=== PATIENT | male | born 1960 | race African-American/Black ===

== ENCOUNTER 2025-01-08 19:46 | Emergency (ER) | payer OTHER ==
--- OUTSIDE RECORDS SUMMARY | 2025-01-08 19:54 | XMS REPORT | Continuity of Care Document ---
Author Name Unknown Address [address] [facility] [address] [place] [address] [facility] [place] Address [address] [facility] [address] [place] [address] Care Team Providers Care Rosin Barrel Filler Name Role Phone Jorge Alberto Beltran MD Primary Care Physician Jorge Alberto Beltran MD Attending Clinician [phone] Radiology Attending Clinician Unavailable RADIOLOGY Attending Clinician Unavailable Elias Han Attending Clinician Charmaine Dunn Attending Clinician [phone] Rita Glasgow Attending Clinician EKTA Attending Clinician Unavailable Kelly Quijano Attending Clinician Justyna Bowman Attending Clinician ARLIN Attending Clinician Unavailable Portillo Mensah Attending Clinician UnavailJorge Alberto Huerta MD Attending Clinician [phone] JORGE ALBERTO BELTRAN Attending Clinician Lyssa Lomax RN, Marcela Attending Clinician [phone] [facility] ANNE MARIE ARSHAD Attending Clinician Unavailable Singer VACA Jose Enrique Attending Clinician [phone] Anne Marie Arshad MD Attending Clinician [phone] Ellen Brito Attending Clinician [phone] ELLEN RASMUSSEN Attending Clinician Unavailable WINSTON FLETCHER Attending Clinician Unavailable Winston Fletcher MD Attending Clinician [phone] Pcp-Lab Attending Clinician Unavailable Susie Seals MD Attending Clinician + [phone] Minda Arthur MD Attending Clinician [phone] Eric Steward MD Attending Clinician [phone] SUSIE SEALS Attending Clinician Unavaila SUSIE Bryant Attending Clinician Unavaila amadou Doctor Unassigned, [place] Attending Clinician U navailable Ju Wagoner MA Attending Clinician Unavail able Sean Polk MD Attending Clinician [phone] ERIC STEWARD Attending Clinician Unavailab le 1, [facility] Attending Clinician Unavailable Mee Buchanan MD Attending Clinician [phone] OWENS_T Admitting Clinician Unavailable FRANCISCO_BRENDA Admitting Clinician Unavailable Awais Mckeon Admitting Clinician Unavailable ANNE MARIE ARSHAD Admitting Clinician Unavailable Anne Marie Arshad MD Admitting Clinician [phone] Payers Payer Name Policy Type Policy Number Effective Date Expirati on Date Source [facility] (MEDICARE REPLACEMENT HMO) [id number] 2021 00:00:00 [employer] - MEDICARE COMPLETE (MEDICARE REPLACEMENT HMO) [id number] Problems Condition Name Condition Details Condition Category Status Onset Date Resolution Date Last Treatment Date Treating Clinician Comments Source Pulmonary hypertensi on Pulmonary hypertensi on Disease Active 11-19 00:00: 00 [facility] 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 Disease Active 11-19 00:00: 00 [facility] Frequent PVCs Frequent PVCs Disease Active 11-17 00:00: 00 [facility] Acute on chronic diastolic CHF (congestiv e heart failure), NYHA class 3 Acute on chronic diastolic CHF (congestiv e heart failure), NYHA class 3 Disease Active 11-17 00:00: 00 [facility] Frequent PVCs Frequent PVCs Disease Active 11-17 00:00: 00 [facility] Nonsustain ed ventricula r tachycardi a Nonsustain ed ventricula r tachycardi a Disease Active 11-17 00:00: 00 [facility] Elevated troponin I level Elevated troponin I level Disease Active 11-17 00:00: 00 [facility] Acute right-side d CHF (congestiv e heart failure) Acute right-side d CHF (congestiv e heart failure) Disease Active 11-15 00:00: 00 [facility] Chronic gout of multiple sites, unspecifie d cause Chronic gout of multiple sites, unspecifie d cause Disease Active 09-15 00:00: 00 [facility] Chronic gout of multiple sites, unspecifie d cause Chronic gout of multiple sites, unspecifie d cause Disease Active 09-15 00:00: 00 [facility] Polyarthra lgia Polyarthra lgia Disease Active 09-15 00:00: 00 [facility] Hyperurice shira Hyperurice shira Disease Active 09-15 00:00: 00 [facility] Elevated serum creatinine Elevated serum creatinine Disease Active 09-15 00:00: 00 [facility] Generalize d osteoarthr itis Generalize d osteoarthr itis Disease Active 09-15 00:00: 00 [facility] History of CHF (congestiv e heart failure) History of CHF (congestiv e heart failure) Disease Active 09-15 00:00: 00 [facility] Personal history of gout Personal history of gout Disease Active 09-15 00:00: 00 [facility] ELISEO (acute kidney injury) ELISEO (acute kidney injury) Disease Active 2018-08 00:00: 00 [facility] Fluid overload Fluid overload Disease Active 2018-08 00:00: 00 [facility] CHF exacerbati on CHF exacerbati on Disease Active 2018-08 00:00: 00 [facility] Essential hypertensi on Essential hypertensi on Disease Active 2018-08 00:00: 00 [facility] Other hyperlipid emia Other hyperlipid emia Disease Active 2018-08 00:00: 00 [facility] ICD (implantab le cardiovert er-defibri llator) in place ICD (implantab le cardiovert er-defibri llator) in place Disease Active 2018-08 00:00: 00 [facility] ELISEO (acute kidney injury) ELISEO (acute kidney injury) Disease Active 2018-08 00:00: 00 [facility] Coagulase- negative staphyloco ccal infection Coagulase- negative staphyloco ccal infection Disease Active 01-12 00:00: 00 [facility] Fungal infection Fungal infection Disease Active 01-12 00:00: 00 [facility] MRSA infection MRSA infection Disease Active 01-12 00:00: 00 [facility] Coagulase- negative staphyloco ccal infection Coagulase- negative staphyloco ccal infection Disease Active 01-12 00:00: 00 [facility] Acanthosis nigricans Acanthosis nigricans Disease Active 01-12 00:00: 00 [facility] Tobacco use disorder Tobacco use disorder Disease Active 01-12 00:00: 00 [facility] Cellulitis of axilla, right Cellulitis of axilla, right Disease Active 12-08 00:00: 00 [facility] Cellulitis of axilla, right Cellulitis of axilla, right Disease Active 12-08 00:00: 00 [facility] Morbid obesity with body mass index of 40.0-49.9 Morbid obesity with body mass index of 40.0-49.9 Disease Active 12-06 00:00: 00 [facility] Morbid obesity with body mass index of 40.0-49.9 Morbid obesity with body mass index of 40.0-49.9 Disease Active 12-06 00:00: 00 [facility] Postproced ural seroma of skin and subcutaneo us tissue following other procedure Postproced ural seroma of skin and subcutaneo us tissue following other procedure Disease Active 12-05 00:00: 00 Overview: Formattin g of this note might be different from the original. Added automatic ally from request for surgery [id number] [facility] Obesity (BMI 30-39.9) Obesity (BMI 30-39.9) Disease Active 11-11 00:00: 00 [facility] Lymphadeno renate, axillary Lymphadeno renate, axillary Disease Active 11-02 00:00: 00 Overview: Formattin g of this note might be different from the original. Added automatic ally from request for surgery [id number] [facility] Hyperlipid emia Hyperlipid emia Problem Active 09-19 00:00: 00 [facility] Gout Gout Problem Active 09-19 00:00: 00 [facility] Obesity Obesity Problem Active 09-19 00:00: 00 [facility] Hypertensi ve disorder Hypertensi ve Disorder Problem Active 09-19 00:00: 00 [facility] Allergies, Adverse Reactions, Alerts Allergy Name Allergy Type Status Severity Reaction(s) Onset Date Inactive Date Treating Clinician Comments Source Sulfa (Sulfona mide Antibiot ics) Propensi ty to adverse reaction s Active Other - See comments 10-28 00:00: 00 Blisters on body [facility] Sulfa (Sulfona mide Antibiot ics) Propensi ty to adverse reaction s Active Other - See comments 10-28 00:00: 00 Blisters on body [facility] SULFA (SULFONA MIDE ANTIBIOT ICS) Drug Class Active Other-Cmnt 10-28 00:00: 00 [facility] No Known Allergie s DA Active U 2012-08 00:00: 00 [facility] Bactrim Allergy to substanc e Active Rash [facility] Bactrim Drug Allergy Active Moderate [facility] Social History Social Habit Start Date Stop Date Quantity Comments [facility] History of tobacco use Chews Tobacco [facility] Alcohol intake 2020-12-02 00:00:00 2020-12-02 00:00:00 Current non-drinker of alcohol (finding) [facility] History of Social function 2020-12-02 00:00:00 2020-12-02 00:00:00 [facility] Exposure to SARS-CoV-2 (event) 2020-10-16 00:00:00 2020-11-15 18:32:00 Not sure [facility] Alcoholic beverage intake 2019-09-27 00:00:00 2019-09-27 00:00:00 Current non-drinker of alcohol (finding) [facility] Tobacco use and exposure 2019-03-14 00:00:00 2019-03-14 00:00:00 Former smokeless tobacco user [facility] Sex assigned at 1960 00:00:00 1960 00:00:00 [facility] Smoking Status Start Date Stop Date Source Occasional tobacco smoker 2020-11-16 00:00:00 [facility] Ex-smoker 2019-03-14 00:00:00 2019-03-14 00:00:00 [facility] Current every day smoker 2019-02-17 00:00:00 [facility] Medications Ordered Medication Name Filled Medication Name Start Date Stop Date Current Medication? Ordering Clinician Indication Dosage Frequency Signature (SIG) Comments Components Source BUMETANIDE 1 mg tablet 02-25 00:00: 00 Yes [id number] TAKE 2 TABLETS BY MOUTH IN THE MORNING AND IN THE EVENING [facility] BUMETANIDE 1 mg tablet 12-27 00:00: 00 Yes [id number] TAKE 2 TABLETS BY MOUTH IN THE MORNING AND IN THE EVENING [facility] bumetanide 1 mg tablet 08 00:00: 00 Yes [id number] 2mg Take 2 tablets by mouth every morning and evening. [facility] predniSONE 20 mg tablet 11-20 00:00: 00 12-02 00:00 :00 No [id number] 40mg Take 2 tablets by mouth daily. [facility] lovastatin 20 mg tablet 11-19 18:03: 47 11-19 00:00 :00 No Take by mouth at bedtime. [facility] albuterol-i pratropium 20-100 mcg/actuati on inhaler 11-19 00:00: 00 Yes [id number] 1{puff} Inhale 1 Puff 4 (four) times daily. [facility] nitroglycer in 0.4 mg sublingual tablet 11-19 00:00: [id number] 1 tablet under the tongue every 5 (five) minutes as needed for Chest pain. [facility] bumetanide 1 mg tablet 11-19 00:00: 00 12-05 00:00 :00 No [id number] 2mg Take 2 tablets by mouth every morning and evening. [facility] sulfur hexafluorid e microsphr (LUMASON) injection 5 mL 11-18 15:00: 00 11-18 15:52 :00 No [id number] 5mL 5 mL, Intravenou s, ONCE, 1 dose, Wed11/18/20 at 1000, Routine
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 crewmember approving Restricted medication : JEZ NEGRETE [facility] predniSONE (DELTASONE) tablet 40 mg 11-18 14:00: 00 11-21 13:59 :00 No 40mg 40 mg, Oral, DAILY, 3 doses, First dose on Wed11/18/20 at 0900, Last dose on Wed11/20/20 at 0900, Routine [facility] methylpredn isolone sod succ (SOLU-MEDRO L) injection 40 mg 11-18 01:00: 00 11-18 13:22 :20 No 40mg 40 mg, Intravenou s, Q12H, First dose (after last modificati on) on 11/17/20 at 2000, Until Discontinu ed, Routine [facility] allopurinoL (ZYLOPRIM) tablet 300 mg 11-17 18:30: 00 Yes 300mg 300 mg, Oral, DAILY, First dose on 11/17/20 at 1330, Until Discontinu ed, Routine [facility] docusate (COLACE) capsule 100 mg 11-17 14:00: 00 Yes 100mg 100 mg, Oral, DAILY, First dose on 11/17/20 at 0900, Until Discontinu ed, Routine [facility] enoxaparin (LOVENOX) injection 40 mg 11-16 22:00: 00 Yes 40mg 40 mg, Subcutaneo us, DAILY, First dose on 11/16/20 at 1700, Until Discontinu ed, Routine [facility] methylpredn isolone sod succ (SOLU-MEDRO L) injection 40 mg 11-16 17:00: 00 11-17 13:11 :59 No 40mg 40 mg, Intravenou s, Q6H, First dose (after last modificati on) on 11/16/20 at 1200, Until Discontinu ed, Routine [facility] carvediloL (COREG) tablet 12.5 mg 11-16 16:00: 00 11-17 15:17 :01 No 12.5mg 12.5 mg, Oral, BID MEALS, First dose on 11/16/20 at 1100, Until Discontinu ed, Routine [facility] magnesium sulfate in water 2 gram/50 mL (4 %) infusion 2 g 11-16 14:00: 00 11-16 13:10 :00 No 2g 2 g, IV Piggyback, ONCE, 1 dose, 11/16/20 at 0900, Routine [facility] bumetanide (BUMEX) injection 2 mg 11-16 13:00: 00 Yes 2mg 2 mg, Slow IV Push, BID, First dose (after last modificati on) on 11/16/20 at 0800, Until Discontinu ed, Routine
Indicatio n: Decompensa jade heart failure/vo lume overload and not responsive to IV furosemide [facility] albuterol-i pratropium (COMBIVENT RESPIMAT) 20-100 mcg/actuati on inhaler 1 Puff 11-16 13:00: 00 Yes 1{puff} 1 Puff, Inhalation , QID, First dose on 11/16/20 at 0800, Until Discontinu ed, Routine
Is this order for a patient with suspected or confirmed COVID-19 infection? Yes [facility] nicotine (NICODERM) 7 mg/24 hr patch 1 Patch 11-16 10:30: 00 11-17 16:51 :00 No 1{patch } 1 Patch, Topical, Administer over 24 Hours, ONCE, 1 dose, 11/16/20 at 0530, Routine [facility] albuterol-i pratropium (COMBIVENT RESPIMAT) 20-100 mcg/actuati on inhaler 1 Puff 11-16 09:30: 40 11-17 17:38 :20 No 1{puff} 1 Puff, Inhalation , QIDPRN, Starting 11/16/20 at 0430, Until 11/17/20 at 1238, Routine, Wheezing, Shortness of Breath, Bronchospa sm, Chest tightness< br>Is this order for a patient with suspected or confirmed COVID-19 infection? Yes [facility] hydralAZINE (APRESOLINE ) injection 10 mg 11-16 05:21: 53 Yes 10mg 10 mg, Slow IV Push, Q4HPRN, Starting 11/16/20 at 0021, Until Discontinu ed, STAT, DBP=>100; SBP=>160, DBP=>100; SBP=>180<b r>Indicati on: Hypertensi ve Emergency [facility] nitroglycer in (NITROSTAT) sublingual tablet 0.4 mg 11-16 05:14: 35 Yes .4mg 0.4 mg, Sublingual , Q5MIN PRN, Starting 11/16/20 at 0014, Until Discontinu ed, Routine, Chest pain [facility] ondansetron (ZOFRAN (PF)) injection 4 mg 11-16 05:13: 55 Yes 4mg 4 mg, Slow IV Push, Q6HPRN, Starting 11/16/20 at 0013, Until Discontinu ed, Routine, Nausea and Vomiting (N/V) [facility] acetaminoph en (TYLENOL) tablet 650 mg 11-16 05:13: 37 Yes 650mg 650 mg, Oral, Q6HPRN, Starting 11/16/20 at 0013, Until Discontinu ed, Routine, Pain (scale 1-3) [facility] methylpredn isolone sod succ (SOLU-MEDRO L) injection 125 mg 11-16 05:00: 00 11-16 09:30 :03 No 125mg 125 mg, Intravenou s, Q6H, First dose on 11/16/20 at 0000, Until Discontinu ed, Routine [facility] iohexol (OMNIPAQUE 350 BULK-100 mL) injection 100 mL 11-16 02:30: 00 11-16 02:15 :00 No [id number] 100mL 100 mL, Intravenou s, ONCE, 1 dose, Wed11/15/20 at 2130, Routine [facility] bumetanide (BUMEX) injection 1.25 mg 11-16 01:30: 00 11-16 12:51 :31 No 1.25mg 1.25 mg, Slow IV Push, Q24H, First dose on Wed11/15/20 at 2030, Until Discontinu ed, Routine
Indicatio n: Decompensa jade heart failure/vo lume overload and not responsive to IV furosemide [facility] lovastatin 20 mg tablet 2019-08 19:45: 41 Yes Take by mouth at bedtime. [facility] gabapentin 100 mg capsule 2019-08 19:44: 46 07-24 00:00 :00 No 100mg Take 100 mg by mouth daily. [facility] colchicine 0.6 mg tablet 2019-08 00:00: 00 Yes [id number] .6mg Take 1 tablet by mouth daily. Please take 1 tablet three times a week [facility] methylPREDN ISolone 4 mg tablets 2019-08 00:00: 00 11-19 00:00 :00 No [id number] Take by mouth SEE-INSTRU CTIONS. follow package directions [facility] allopurinoL 100 mg tablet 04-11 00:00: 07-24 00:00 :00 No [id number] 100mg Take 1 tablet by mouth daily. [facility] predniSONE 5 mg tablet 04-11 00:00: 00 04-27 04:59 :00 No [id number] Take 6 tablets by mouth daily for 5 days, THEN 4 tablets daily for 5 days, THEN 2 tablets daily for 5 days. [facility] methylPREDN ISolone (MEDROL, JOSEFA,) 4 mg tablets 03-27 00:00: 04-11 00:00 :00 No [id number] Take by mouth SEE-INSTRU CTIONS. follow package directions [facility] colchicine 0.6 mg tablet 03-07 00:00: 00 07-24 00:00 :00 No [id number] Please take 1 tablet three times a week [facility] predniSONE 5 mg tablet 03-07 00:00: 00 03-17 04:59 :00 No [id number] Take 4 tablets by mouth daily for 3 days, THEN 3 tablets daily for 3 days, THEN 2 tablets daily for 3 days. [facility] colchicine 0.6 mg tablet 6-17 00:00: 00 03-07 00:00 :00 No [id number] Please take 1 tablet three times a week [facility] allopurinoL 100 mg tablet 3-26 00:00: 00 04-11 00:00 :00 No [id number] 100mg Take 1 tablet by mouth daily. [facility] colchicine 0.6 mg tablet 11-22 00:00: 02-13 00:00 :00 No [id number] Please take 1 tablet three times a week [facility] colchicine 0.6 mg tablet 09-14 00:00: 11-22 00:00 :00 No [id number] Please take 1 tablet three times a week [facility] allopurinoL 100 mg tablet 09-14 00:00: 11-22 00:00 :00 No [id number] 100mg Take 1 tablet by mouth daily. [facility] lovastatin 20 mg tablet 2018-08 19:46: 57 Yes Take by mouth at bedtime. [facility] gabapentin 100 mg capsule 2018-08 19:46: 57 Yes 100mg Take 100 mg by mouth daily. [facility] spironolact one 25 mg tablet 2018-08 00:00: 07-24 00:00 :00 No [id number] 25mg Take 1 tablet by mouth daily. [facility] benzonatate 200 mg capsule 2018-08 00:00: 01-09 00:00 :00 No [id number] 200mg Take 1 capsule by mouth 3 (three) times daily as needed for Cough. [facility] acetaminoph en-codeine 300-30 mg tablet 2018-08 00:00: 07-24 00:00 :00 No [id number] 1{tbl} Take 1 tablet by mouth every 6 (six) hours as needed (pain unrelieved by Ibuprofen or Aleve). [facility] traMADol (ULTRAM) 50 mg tablet 2018-08 0 00:00: 07-24 00:00 :00 No [id number] 50mg Take 1 tablet by mouth every 6 (six) hours as needed for Pain (scale 7-10). [facility] ondansetron (ZOFRAN) 4 mg tablet 2018-08 0 00:00: 07-24 00:00 :00 No [id number] 4mg Take 1 tablet by mouth every 8 (eight) hours as needed for Nausea and Vomiting (N/V). [facility] lovastatin 20 mg tablet 02-17 18:07: 14 Yes Take by mouth at bedtime. [facility] gabapentin 100 mg capsule 02-17 18:07: 14 Yes 100mg Take 100 mg by mouth daily. [facility] carvedilol 12.5 mg tablet 01-20 00:00: 00 11-19 00:00 :00 No [id number] 12.5mg Take 1 tablet by mouth 2 (two) times daily with meals. [facility] terbinafine HCl 250 mg tablet 01-12 00:00: 00 07-24 00:00 :00 No [id number] 250mg Take 1 tablet by mouth daily. [facility] traMADOL 50 mg tablet 12-10 00:00: 00 Yes [id number] 50mg Take 1 tablet by mouth every 8 (eight) hours as needed for Pain (scale 1-3), Pain (scale 4-6) or Pain (scale 7-10). [facility] indomethaci n 75 mg CR capsule 02-04 00:00: 00 Yes 75mg Take 1 capsule by mouth 2 (two) times daily with meals. [facility] carvedilol 25 mg tablet carvedilol 25 mg tablet Yes [facility] allopurinol 300 mg tablet allopurinol 300 mg tablet Yes [facility] metolazone 5 mg tablet metolazone 5 mg tablet Yes [facility] glipizide 10 mg tablet glipizide 10 mg tablet Yes [facility] CVS PREP 70 % PAD CVS PREP 70 % PAD Yes [facility] metolazone 5 mg tablet metolazone 5 mg tablet Yes [facility] albuterol sulfate hfa 108 (90 base) mcg/act aerosol soln albuterol sulfate hfa 108 (90 base) mcg/act aerosol soln Yes [facility] ipratropium -albuterol 0.5-2.5 (3) mg/3ml solution ipratropium -albuterol 0.5-2.5 (3) mg/3ml solution Yes [facility] furosemide 80 mg tablet furosemide 80 mg tablet Yes [facility] ibuprofen 800 mg tablet ibuprofen 800 mg tablet Yes [facility] ADVAIR DISKUS 250-50 MCG/DOSE AERO POW BR ACT ADVAIR DISKUS 250-50 MCG/DOSE AERO POW BR ACT Yes [facility] gabapentin 300 mg capsule gabapentin 300 mg capsule Yes [facility] pantoprazol e sodium [address] pantoprazol e sodium [address] Yes [facility] atorvastati n calcium 10 mg tablet atorvastati n calcium 10 mg tablet Yes [facility] carvedilol 25 mg tablet carvedilol 25 mg tablet Yes [facility] allopurinol 300 mg tablet allopurinol 300 mg tablet Yes [facility] albuterol sulfate hfa 108 (90 base) mcg/act aerosol soln albuterol sulfate hfa 108 (90 base) mcg/act aerosol soln Yes [facility] ipratropium -albuterol 0.5-2.5 (3) mg/3ml solution ipratropium -albuterol 0.5-2.5 (3) mg/3ml solution Yes [facility] nystatin [id number] unit/ml suspension nystatin [id number] unit/ml suspension Yes [facility] carvedilol 25 mg tablet carvedilol 25 mg tablet No carvedilol 25 mg tablet [facility] clindamycin HCl 300 mg capsule clindamycin HCl 300 mg capsule No clindamyci n HCl 300 mg capsule [facility] furosemide 80 mg tablet furosemide 80 mg tablet No furosemide 80 mg tablet [facility] hydralazine 25 mg tablet hydralazine 25 mg tablet No hydralazin e 25 mg tablet [facility] indomethaci n 50 mg capsule indomethaci n 50 mg capsule No indomethac in 50 mg capsule [facility] lisinopril 20 mg tablet lisinopril 20 mg tablet No lisinopril 20 mg tablet [facility] meloxicam 7.5 mg tablet meloxicam 7.5 mg tablet No meloxicam 7.5 mg tablet [facility] sulfamethox azole 800 mg-trimetho prim 160 mg tablet sulfamethox azole 800 mg-trimetho prim 160 mg tablet No sulfametho xazole 800 mg-trimeth oprim 160 mg tablet [facility] furosemide 80 mg tablet furosemide 80 mg tablet Yes [facility] ADVAIR DISKUS 250-50 MCG/DOSE AERO POW BR ACT ADVAIR DISKUS 250-50 MCG/DOSE AERO POW BR ACT Yes [facility] pantoprazol e sodium [address] pantoprazol e sodium [address] Yes [facility] losartan potassium 50 mg tablet losartan potassium 50 mg tablet Yes [facility] atorvastati n calcium 10 mg tablet atorvastati n calcium 10 mg tablet Yes [facility] carvedilol 25 mg tablet carvedilol 25 mg tablet Yes [facility] allopurinol 300 mg tablet allopurinol 300 mg tablet Yes [facility] glipizide 10 mg tablet glipizide 10 mg tablet Yes [facility] CVS PREP 70 % PAD CVS PREP 70 % PAD Yes [facility] metolazone 5 mg tablet metolazone 5 mg tablet Yes [facility] albuterol sulfate hfa 108 (90 base) mcg/act aerosol soln albuterol sulfate hfa 108 (90 base) mcg/act aerosol soln Yes [facility] ipratropium -albuterol 0.5-2.5 (3) mg/3ml solution ipratropium -albuterol 0.5-2.5 (3) mg/3ml solution Yes [facility] furosemide 80 mg tablet furosemide 80 mg tablet Yes [facility] ibuprofen 800 mg tablet ibuprofen 800 mg tablet Yes [facility] ADVAIR DISKUS 250-50 MCG/DOSE AERO POW BR ACT ADVAIR DISKUS 250-50 MCG/DOSE AERO POW BR ACT Yes [facility] pantoprazol e sodium [address] pantoprazol e sodium [address] Yes [facility] losartan potassium 50 mg tablet losartan potassium 50 mg tablet Yes [facility] atorvastati n calcium 10 mg tablet atorvastati n calcium 10 mg tablet Yes [facility] carvedilol 25 mg tablet carvedilol 25 mg tablet Yes [facility] allopurinol 300 mg tablet allopurinol 300 mg tablet Yes [facility] glipizide 10 mg tablet glipizide 10 mg tablet Yes [facility] CVS PREP 70 % PAD CVS PREP 70 % PAD Yes [facility] metolazone 5 mg tablet metolazone 5 mg tablet Yes [facility] albuterol sulfate hfa 108 (90 base) mcg/act aerosol soln albuterol sulfate hfa 108 (90 base) mcg/act aerosol soln Yes [facility] CVS PREP 70 % PAD CVS PREP 70 % PAD Yes [facility] ipratropium -albuterol 0.5-2.5 (3) mg/3ml solution ipratropium -albuterol 0.5-2.5 (3) mg/3ml solution Yes [facility] furosemide 80 mg tablet furosemide 80 mg tablet Yes [facility] ibuprofen 800 mg tablet ibuprofen 800 mg tablet Yes [facility] ADVAIR DISKUS 250-50 MCG/DOSE AERO POW BR ACT ADVAIR DISKUS 250-50 MCG/DOSE AERO POW BR ACT Yes [facility] pantoprazol e sodium [address] pantoprazol e sodium [address] Yes [facility] losartan potassium 50 mg tablet losartan potassium 50 mg tablet Yes [facility] atorvastati n calcium 10 mg tablet atorvastati n calcium 10 mg tablet Yes [facility] Immunizations Ordered Immunization Name Filled Immunization Name Date Status Comments Source Pneumococcal Polysaccharide, PPSV23 (PNEUMOVAX) 2015-08-30 00:00:00 Completed [facility] Pneumococcal Polysaccharide, PPSV23 (PNEUMOVAX) 2015-08-30 00:00:00 Completed [facility] Pneumococcal Polysaccharide, PPSV23 (PNEUMOVAX) 2015-08-30 00:00:00 Completed [facility] Pneumococcal Polysaccharide, PPSV23 (PNEUMOVAX) 2015-08-30 00:00:00 Completed [facility] Pneumococcal Polysaccharide, PPSV23 (PNEUMOVAX) 2015-08-30 00:00:00 Completed [facility] Pneumococcal Polysaccharide, PPSV23 (PNEUMOVAX) 2015-08-30 00:00:00 Completed [facility] Pneumococcal Polysaccharide, PPSV23 (PNEUMOVAX) 2015-08-30 00:00:00 Completed [facility] Pneumococcal Polysaccharide, PPSV23 (PNEUMOVAX) 2015-08-30 00:00:00 Completed [facility] Pneumococcal Polysaccharide, PPSV23 (PNEUMOVAX) 2015-08-30 00:00:00 Completed [facility] Pneumococcal Polysaccharide, PPSV23 (PNEUMOVAX) 2015-08-30 00:00:00 Completed [facility] Pneumococcal Polysaccharide, PPSV23 (PNEUMOVAX) 2015-08-30 00:00:00 Completed [facility] Pneumococcal Polysaccharide, PPSV23 (PNEUMOVAX) 2015-08-30 00:00:00 Completed [facility] Pneumococcal Polysaccharide, PPSV23 (PNEUMOVAX) 2015-08-30 00:00:00 Completed [facility] Pneumococcal Polysaccharide, PPSV23 (PNEUMOVAX) 2015-08-30 00:00:00 Completed [facility] Pneumococcal Polysaccharide, PPSV23 (PNEUMOVAX) 2015-08-30 00:00:00 Completed [facility] Pneumococcal Polysaccharide, PPSV23 (PNEUMOVAX) 2015-08-30 00:00:00 Completed [facility] Pneumococcal Polysaccharide, PPSV23 (PNEUMOVAX) 2015-08-30 00:00:00 Completed [facility] Pneumococcal Polysaccharide, PPSV23 (PNEUMOVAX) 2015-08-30 00:00:00 Completed [facility] Pneumococcal Polysaccharide, PPSV23 (PNEUMOVAX) 2015-08-30 00:00:00 Completed [facility] Pneumococcal Polysaccharide, PPSV23 (PNEUMOVAX) 2015-08-30 00:00:00 Completed [facility] Pneumococcal Polysaccharide, PPSV23 (PNEUMOVAX) 2015-08-30 00:00:00 Completed [facility] Pneumococcal Polysaccharide, PPSV23 (PNEUMOVAX) 2015-08-30 00:00:00 Completed [facility] Pneumococcal Polysaccharide, PPSV23 (PNEUMOVAX) 2015-08-30 00:00:00 Completed [facility] Pneumococcal Polysaccharide, PPSV23 (PNEUMOVAX) 2015-08-30 00:00:00 Completed [facility] Pneumococcal Polysaccharide, PPSV23 (PNEUMOVAX) 2015-08-30 00:00:00 Completed [facility] Pneumococcal Polysaccharide, PPSV23 (PNEUMOVAX) 2015-08-30 00:00:00 Completed [facility] Pneumococcal Polysaccharide, PPSV23 (PNEUMOVAX) 2015-08-30 00:00:00 Completed [facility] Pneumococcal Polysaccharide, PPSV23 (PNEUMOVAX) 2015-08-30 00:00:00 Completed [facility] Vital Signs Vital Name Observation Time Observation Value Comments S ource Systolic blood pressure 2020-12-02 19:51:00 115 mm[Hg] [facility] Diastolic blood pressure 2020-12-02 19:51:00 72 mm[Hg] [facility] Heart rate 2020-12-02 19:51:00 75 /[facility] 2020-12-02 19:51:00 35.94 Batsheva [facility] Body height 2020-12-02 19:51:00 170.2 cm [facility] Body weight 2020-12-02 19:51:00 117.028 kg [facility] BMI 2020-12-02 19:51:00 40.41 kg/m2 [facility] Oxygen saturation in Arterial blood by Pulse oximetry 2020-12-02 19:51:00 98 /min [facility] Respiratory rate 2020-11-19 16:41:00 18 /min [facility] Oxygen saturation in Arterial blood by Pulse oximetry 2020-11-19 16:41:00 92 /min [facility] Systolic blood pressure 2020-11-19 16:11:00 146 mm[Hg] [facility] Diastolic blood pressure 2020-11-19 16:11:00 93 mm[Hg] [facility] Heart rate 2020-11-19 16:11:00 62 /min Unive [facility] Body temperature 2020-11-19 16:11:00 36.83 Batsheva [facility] Body height 2020-11-18 13:00:00 170.2 cm [facility] Body weight 2020-11-18 13:00:00 114 kg [facility] BMI 2020-11-18 13:00:00 39.35 kg/m2 [facility] Systolic blood pressure 2020-09-20 21:44:00 132 mm[Hg] [facility] Diastolic blood pressure 2020-09-20 21:44:00 70 mm[Hg] [facility] Heart rate 2020-09-20 21:44:00 83 /min Unive [facility] Body height 2020-09-20 21:44:00 170.2 cm Univ [facility] Body weight 2020-09-20 21:44:00 116.121 kg [facility] BMI 2020-09-20 21:44:00 40.10 kg/m2 [facility] Oxygen saturation in Arterial blood by Pulse oximetry 2020-09-20 21:44:00 99 /min [facility] Systolic blood pressure 2020-07-24 19:41:00 120 mm[Hg] [facility] Diastolic blood pressure 2020-07-24 19:41:00 69 mm[Hg] [facility] Heart rate 2020-07-24 19:41:00 79 /min Unive [facility] Body temperature 2020-07-24 19:41:00 36.89 Batsheva [facility] Body weight 2020-07-24 19:41:00 113.399 kg Univ [facility] BMI 2020-07-24 19:41:00 39.16 kg/m2 [facility] Systolic blood pressure 2020-04-11 15:46:00 154 mm[Hg] [facility] Diastolic blood pressure 2020-04-11 15:46:00 88 mm[Hg] [facility] Heart rate 2020-04-11 15:46:00 74 /min Unive [facility] Body temperature 2020-04-11 15:46:00 36.33 Batsheva [facility] Respiratory rate 2020-04-11 15:46:00 20 /min [facility] Body height 2020-04-11 15:46:00 170.2 cm [facility] Body weight 2020-04-11 15:46:00 112.946 kg [facility] BMI 2020-04-11 15:46:00 39.00 kg/m2 [facility] Systolic blood pressure 2020-03-27 20:02:00 119 mm[Hg] [facility] Diastolic blood pressure 2020-03-27 20:02:00 75 mm[Hg] [facility] Heart rate 2020-03-27 20:02:00 58 /min Unive [facility] Body temperature 2020-03-27 20:02:00 36.94 Batsheva [facility] Body weight 2020-03-27 20:02:00 112.492 kg [facility] BMI 2020-03-27 20:02:00 38.84 kg/m2 [facility] Systolic blood pressure 2019-09-14 15:50:00 111 mm[Hg] [facility] Diastolic blood pressure 2019-09-14 15:50:00 70 mm[Hg] [facility] Heart rate 2019-09-14 15:50:00 75 /min [facility] Body temperature 2019-09-14 15:50:00 36.56 Batsheva [facility] Respiratory rate 2019-09-14 15:50:00 20 /min [facility] Body height 2019-09-14 15:50:00 170.2 cm [facility] Body weight 2019-09-14 15:50:00 118.434 kg [facility] BMI 2019-09-14 15:50:00 40.89 kg/m2 [facility] Body height 2020-01-10 16:14:00 170.2 cm [facility] Body weight 2020-01-10 16:14:00 118.842 kg [facility] BMI 2020-01-10 16:14:00 41.04 kg/m2 [facility] BP Diastolic 2018-09-19 00:00:00 88 mm[Hg] [facility] Height 2018-09-19 00:00:00 67 [in_i] [facility] BMI (Body Mass Index) 2018-09-19 00:00:00 40.6 kg/m2 [facility] BP Systolic 2018-09-19 00:00:00 167 mm[Hg] [facility] Body Weight 2018-09-19 00:00:00 259 [lb_av] [facility] Procedures Procedure Date / Time Performed Performing Clinician Source XR CHEST 1 VW 2020-11-19 15:52:09 [facility] 2020-11-19 09:14:00 Arnulfo Hubbard [facility] BASIC METABOLIC PANEL (NA, K, CL, CO2, GLUCOSE, BUN, CREATININE, CA) 2020-11-19 09:14:00 Anne Marie Arshad [facility] CBC WITH DIFF 2020-11-19 09:14:00 Jeancarlos [facility] TRANSTHORACIC ECHO (TTE) COMPLETE W/ CONTRAST 2020-11-18 15:45:00 Jez Negrete [facility] CBC WITH DIFF 2020-11-18 09:12[facility] 2020-11-18 09:11:00 [facility]IC METABOLIC PANEL (NA, K, CL, CO2, GLUCOSE, BUN, CREATININE, CA) 2020-11-18 09:11:00 Jeancarlos [facility] MAGNESIUM 2020-11-17 10:19:00 Stevie [facility] TROPONIN I 2020-11-17 10:19:00 [facility] [place] BASIC METABOLIC PANEL (NA, K, CL, CO2, GLUCOSE, BUN, CREATININE, CA) 2020-11-17 10:19:00 Jeancarlos [facility] CBC WITH DIFF 2020-11-17 10:19:00 [facility]-BNP 2020-11-17 10:19:00 Arnulfo Hubbard [facility] TROPONIN I 2020-11-16 21:23:00 [facility] 2020-11-16 15:13:00 Jeancarlos [facility] MAGNESIUM 2020-11-16 09:17:00 [facility] [place] [facility]OPONIN I 2020-11-16 09:17:00 [facility]IC METABOLIC PANEL (NA, K, CL, CO2, GLUCOSE, BUN, CREATININE, CA) 2020-11-16 09:17:[address] [facility]-BNP 2020-11-16 09:17:[address] [facility]ULMONARY ANGIOGRAM 2020-11-16 02:22:11 Singer [facility] XR CHEST 1 VW 2020-11-16 01:57:05 Jose Enrique Douglass [facility] COVID-19 (ID NOW RAPID TESTING) 2020-11-16 01:12:00 Singer [facility] LAB ONLY COVID INTERPRETATION 2020-11-16 01:12:00 Singer [facility] URINALYSIS 2020-11-16 00:46:00 Singer [facility] TROPONIN I 2020-11-16 00:28:00 Singer [facility] COMP. METABOLIC PANEL (99905) 2020-11-16 00:28:00 Singer [facility] CBC WITH DIFF 2020-11-16 00:28:00 Singer [facility] N-TERMINAL PRO-BNP 2020-11-16 00:28:00 Singer [facility] NOTICE OF PRIVACY PRACTICES 2020-11-15 23:35:16 Doctor Unassigned, [place] [facility] CONSENT/REFUSAL FOR DIAGNOSIS AND TREATMENT 2020-11-15 23:32:26 Doctor Unassigned, [place] [facility] URIC ACID 2020-04-11 17:00:00 [facility]. METABOLIC PANEL (17052) 2020-04-11 17:00:00 Winston Fletcher [facility] CBC WITH DIFF 2020-04-11 17:00:00 Winston Fletcher [facility] DME/SUPPLY JUSTIFICATION 2020-01-10 05:01:00 Doc tor Unassigned, [place] [facility] SLEEP STUDY DATA REPORT 2019-10-04 06:01:00 Doct or Unassigned, [place] [facility] URIC ACID 2019-09-14 16:43:00 Minda Arthur [facility] RHEUMATOID FACTOR 2019-09-14 16:43:00 Curt Arthur i [facility] FREE T4 2019-09-14 16:43:00 Minda Arthur [facility] THYROID STIMULATING HORMONE 2019-09-14 16:43:00 Sandhya Minda [facility] COMP. METABOLIC PANEL (50422) 2019-09-14 16:43:00 Minda Arthur [facility] CBC WITH DIFFERENTIAL 2019-09-14 16:43:00 Carine Arthur [facility] HCV ANTIBODY 2019-09-14 16:43:00 Minda Arthur [facility] CYCLIC CITRULLINATED PEPTIDE 2019-09-14 16:43:00 Minda Arthur [facility] HB HLA I TYPING 1 ALLELE HR DNA 2019-09-14 16:40:00 Minda Arthur [facility] EXTERNAL PROVIDER RECORDS 2019-09-12 06:01:00 Do ctor Unassigned, [place] [facility] MAGNESIUM 2019-04-14 13:34:00 Chanel [facility] COMP. METABOLIC PANEL (53243) 2019-04-14 13:34:00 Chanel [facility] N-TERMINAL PRO-BNP 2019-04-14 13:34:00 Chanel [facility] ASSIGNMENT OF BENEFITS 2019-04-14 13:11:12 Docto r Unassigned, [place] [facility] INSURANCE CORRESPONDENCE 2019-03-13 05:01:00 Doc tor Unassigned, [place] [facility] AUTHORIZATION FOR RELEASE OF PHI 2019-02-22 05:01:00 Doctor Unassigned, [place] [facility] AUTHORIZATION FOR RELEASE OF PHI 2018-12-06 05:01:00 Doctor Unassigned, [place] [facility] XR, chest, 2 view 2018-09-19 00:00:00 [facility] ECG WITH INTERPRETATION 12 LEADS 2018-09-19 00:00:00 [facility] Cholecystectomy [facility] dical Group Plan of Care Planned Activity Planned Date Details Comments Source Diagnostic Test Pending 2018-09-19 00:00:00 BMP, serum or plasma [code = BMP, serum or plasma] [facility] Diagnostic Test Pending 2018-09-19 00:00:00 CBC [code = CBC] [facility] Encounters Start Date/Time End Date/Time Encounter Type Admission Type Attending Clinicians Care Facility Care Department Encounter ID Source 2019-12-04 00:00:00 2024-12-21 21:59:36 Jorge Alberto [facility] [id number] 350.1.13.10 4.2.7.2.686 [id number] [facility] 2024-09-14 11:00:00 2024-09-14 23:59:00 Hospital Encounter Radiology Radiology [facility] [id number] 350.1.13.10 4.2.7.2.686 [id number] [facility] 2024-09-14 10:45:00 2024-09-14 10:59:00 Outpatient R RADIOLOGY [facility] [id number] [facility] 2024-09-14 10:45:00 2024-09-14 10:59:00 Hospital Encounter Radiology Radiology [facility] 1.2.840.114 350.1.13.10 4.2.7.2.686 [id number] [facility] 2024-07-21 08:45:00 2024-07-21 09:30:00 DHP CHF Follow-up Glendalys Han DEV DEV [id number] [facility] 2024-07-05 11:30:00 2024-07-05 12:30:00 DHP CHF Initial Assessment Glendalys Han DEV DEV [id number] [facility] 2024-06-13 09:30:00 2024-06-13 10:00:00 D2Me Check-in Charmaine Dunn 2.16.840. [id number] 4.6.03263 [id number] 2.16.840.1. 378936.4.6. [id number] F9R [facility] 2024-04-10 11:15:00 2024-04-10 12:15:00 DHP CHF Initial Assessment Glendalys Han DEV DEV [id number] [facility] 2023-11-29 19:15:00 2023-11-29 19:35:00 PARTS SALES COUNTERPERSON Panel-dire cted Gap Closure Rita Glasgow 2.16.840. [id number]. 4.6.25019 [id number] 2.16.840.1. 333660.4.6. [id number] RYJ [facility] 2023-09-06 19:00:00 2023-09-06 20:00:00 D2Me Rita Glasgow 2.16.840. [id number]. 4.6.61022 [id number] 2.16.840.1. 868565.4.6. [id number] [facility] 2023-03-26 00:00:00 2023-03-26 00:00:00 Outpatient OWENS_T DMG DMG [id number] [facility] 2022-11-19 21:00:00 2022-11-19 22:00:00 CAV Kelly Quijano 2.16.840. [id number] 4.6.60410 [id number] 2.16.840.1. [id number]. [id number] [facility] 2022-07-03 14:30:00 2022-07-03 15:30:00 CAV Justyna Colby 2.16.840. 1.497962. 4.6.81496 [id number] 2.16.840.1. 918345.4.6. [id number] [facility] 2022-06-25 00:00:00 2022-06-25 00:00:00 Outpatient OWENS_T DMG DMG [id number] [facility] 2022-06-25 00:00:00 2022-06-25 00:00:00 Outpatient OWENS_T DMG DMG [id number] [facility] 2022-04-09 00:00:00 2022-04-09 00:00:00 Outpatient OWENS_T DMG DMG [id number] [facility] 2022-03-28 00:00:00 2022-03-28 00:00:00 Outpatient OWENS_T DMG DMG [id number] [facility] 2022-03-13 08:14:00 2022-03-13 08:14:00 Outpatient OWENS_T DMG DMG [id number] [facility] 2021-12-19 09:10:00 2021-12-19 09:10:00 Outpatient AMBREEN_UZIEL TSE [facility] [id number] [facility] 2021-12-12 09:01:00 2021-12-12 09:01:00 Outpatient OWENS_T DMG DMG [id number] [facility] 2021-10-28 09:52:00 2021-10-28 09:52:00 Outpatient Aravind Nobleory [facility] [id number] 2021-10-23 10:30:00 2021-10-23 10:30:00 Outpatient OWENS_T DMG DMG [id number] [facility] 2021-05-14 06:45:00 2021-05-14 06:45:00 Outpatient OWENS_T DMG DMG [id number] [facility] 2021-03-25 11:30:00 2021-03-25 11:30:00 Outpatient DMG DMG [id number] [facility] 2021 00:00:00 2021 00:00:00 Main [facility] One [id number] 350.1.13.10 4.2.7.2.686 [id number] [facility] 2021-02-03 10:30:00 2021-02-03 10:30:00 Outpatient JORGE ALBERTO TRUJILLO [facility] [id number] [facility] 2020-12-27 00:00:00 2020-12-27 00:00:00 Main [facility] 08.31.840.114 350.1.13.10 4.2.7.2.686 [id number] [facility] 2020-12-05 00:00:00 2020-12-05 00:00:00 Refla nena Jorge Alberto [facility] Office Building One 1.114 350.1.13.10 4.2.7.2.686 [id number] [facility] 2020-12-02 14:44:19 2020-12-02 15:14:19 Office Visit Jorge Alberto [facility] Building One .114 350.1.13.10 4.2.7.2.686 [id number] [facility] 2020-12-02 15:00:00 2020-12-02 15:00:00 Outpatient Dann BELTRAN [facility] [id number] [facility] 2020-11-21 00:00:00 2020-11-21 00:00:00 Transition of Care Marcela [address] 1.114 350.1.13.10 4.2.7.2.686 [id number] [facility] 2020-11-15 18:46:00 2020-11-19 14:15:[address] [facility] [id number] [facility] 2020-11-15 18:46:00 2020-11-19 14:15:00 Hospital Encounter Jose Enrique Douglass Jeancarlos [facility] 1.114 350.1.13.10 4.2.7.2.686 [id number] [facility] 2020-09-20 15:31:24 2020-09-20 16:08:30 Office Visit Ellen Rasmussen [facility] Office Building One .114 350.1.13.10 4.2.7.2.686 [id number] [facility] 2020-09-20 15:30:00 2020-09-20 15:30:00 Outpatient ELLEN MEYER [facility] [id number] [facility] 2020-09-05 00:00:00 2020-09-05 00:00:00 Telephone Jorge Alberto [facility] Building One 1..114 350.1.13.10 4.2.7.2.686 [id number] [facility] 2020-08-29 00:00:00 2020-08-29 00:00:00 Refill Jorge Alberto [facility] Building One 1.114 350.1.13.10 4.2.7.2.686 [id number] [facility] 2020-07-24 13:31:44 2020-07-24 13:46:44 Office Visit Jorge Alberto [facility] Building One 1.114 350.1.13.10 4.2.7.2.686 [id number] [facility] 2020-07-24 13:30:00 2020-07-24 13:30:00 Outpatient JORGE ALBERTO TRUJILLO [facility] [id number] [facility] 2020-07-19 00:00:00 2020-07-19 00:00:00 Telephone Jorge Alberto [facility] Office Building One 1.114 350.1.13.10 4.2.7.2.686 [id number] [facility] 2020-07-19 00:00:00 2020-07-19 00:00:00 Telephone Jorge Alberto [facility] Building One 1.114 350.1.13.10 4.2.7.2.686 [id number] [facility] 2020-07-18 00:00:00 2020-07-18 00:00:00 Telephone [facility] One 1.2.840.114 350.1.13.10 4.2.7.2.686 [id number] [facility] 2020-07-11 10:30:00 2020-07-11 10:30:00 Outpatient R WINSTON FLETCHER [facility] [id number] [facility] 2020-04-11 10:36:26 2020-04-11 15:50:02 Office Visit Justine Winston [facility] 1.2.840.114 350.1.13.10 4.2.7.2.686 [id number] [facility] 2020-04-11 11:48:17 2020-04-11 12:28:39 Steward Dishwasher Visit Pcp-Lab Justine [facility] 1.840.114 350.1.13.10 4.2.7.2.686 [id number] [facility] 2020-04-11 11:30:00 2020-04-11 11:30:00 [id number] [facility] 2020-03-27 15:15:00 2020-03-27 15:15:00 Outpatient R RUBY JORGE ALBERTO [facility] [id number] [facility] 2020-03-27 14:56:20 2020-03-27 15:11:20 Office Visit RubyJorge Alberto [facility] nal Building 1.2840.114 350.1.13.10 4.2.7.2.686 [id number] [facility] 2020-03-07 00:00:00 2020-03-07 00:00:00 Telephone Winston Fletcher [facility] 1.2.840.114 350.1.13.10 4.2.7.2.686 [id number] [facility] 2020-02-21 00:00:00 2020-02-21 00:00:00 [facility] 1.2.840.114 350.1.13.10 4.2.7.2.686 [id number] [facility] 2019-09-14 09:34:32 2020-02-14 18:03:01 Office Visit Minda Arthur Emilio B [facility] 1.2.840.114 350.1.13.10 4.2.7.2.686 [id number] [facility] 2020-02-05 00:00:00 2020-02-05 00:00:00 Refill Minda Arthur [facility] 1.2.840.114 350.1.13.10 4.2.7.2.686 [id number] [facility] 2020-01-18 11:00:00 2020-01-18 11:00:00 Outpatient R [facility] [id number] [facility] 2020-01-10 11:30:00 2020-01-10 11:30:00 Outpatient R SUSIE SEALS STRAHIL [facility] [id number] [facility] 2020-01-10 08:17:47 2020-01-10 08:47:47 Telemedici ne Visit Susie Seals [facility] Building 1.2.840.114 350.1.13.10 4.2.7.2.686 [id number] [facility] 2020-01-10 00:00:00 2020-01-10 00:00:00 Orders Only Doctor Unassigned, [place] [facility] 1.2.840.114 350.1.13.10 4.2.7.2.686 [id number] [facility] 2019-11-21 00:00:00 2019-11-21 00:00:00 Refill Minda Arthur [facility] 1.2.840.114 350.1.13.10 4.2.7.2.686 [id number] [facility] 2019-11-08 13:30:00 2019-11-08 13:30:00 Outpatient SUSIE LEO STRAHIL [facility] [id number] [facility] 2019-11-08 00:00:00 2019-11-08 00:00:00 Telephone Ju Wagoner [facility] [id number] [id number] [id number] [facility] 2019-10-30 00:00:00 2019-10-30 00:00:00 Refill Sean Polk [facility] [id number] [id number] [facility] 2019-10-04 00:00:00 2019-10-04 00:00:00 Orders Only Doctor Unassigned, [place] [facility] 1.2.840.114 350.1.13.10 4.2.7.2.686 [id number] [id number] [facility] 2019-09-14 10:28:47 2019-09-14 10:38:47 Steward Dishwasher Visit Pcp-Eric Stewart [facility] 1.2.840.114 350.1.13.10 4.2.7.2.686 [id number] [facility] 2019-09-14 10:00:00 2019-09-14 10:27:31 Outpatient R NICHELLEERIC [facility] [id number] [facility] 2019-09-12 00:00:00 2019-09-12 00:00:00 Orders Only Doctor Unassigned, [place] [facility] 1.2.840.114 350.1.13.10 4.2.7.2.686 [id number] [id number] [facility] 2019-09-04 13:15:00 2019-09-04 13:40:47 Outpatient JORGE ALBERTO TRUJILLO [facility] [id number] [facility] 2019-04-14 08:10:44 2019-04-14 08:25:44 Steward Dishwasher Visit 1, [facility], Mee [facility] 1.2.840.114 350.1.13.10 4.2.7.2.686 [id number] [facility] 2019-04-14 00:00:00 2019-04-14 00:00:00 Orders Only Doctor Unassigned, [place] [facility] 1.2.840.114 350.1.13.10 4.2.7.2.686 [id number] 009 [id number] [facility] 2019-03-13 00:00:00 2019-03-13 00:00:00 Orders Only Doctor Unassigned, [place] [facility] 1.2.840.114 350.1.13.10 4.2.7.2.686 [id number] [id number] [facility] 2019-02-22 00:00:00 2019-02-22 00:00:00 Orders Only Doctor Unassigned, [place] [facility] 1.2.840.114 350.1.13.10 4.2.7.2.686 [id number] [id number] [facility] 2018-12-06 00:00:00 2018-12-06 00:00:00 Orders Only Doctor Unassigned, [place] [facility] 1.2.840.114 350.1.13.10 4.2.7.2.686 [id number] [id number] [facility] 2018-09-19 00:00:00 2018-09-19 00:00:00 Nathan Barrera, DO: [address], [address], [place] [address] , Ph. [phone] [facility] [place] [facility] surgery [facility] Results Test Description Test Time Test Comments Results Result Co mments Source [id number] 11:51:00* Test Item Value Reference Range Interpretation Comme nts MAGNESIUM (test code = MAG) 1.8 MG/DL 1.6-2.3 N PROTHROMBIN [id number] 11:38:00* Test Item Value Reference Range Interpretation Comme nts PROTHROMBIN TIME PATIENT (test code = PTP) 12.9 SECONDS 9.5-12.7 H INTERNATIONAL NORMAL RATIO (test code = INR) 1.2 0.86-1.14 H The INR is to be used only for monitoring oral anticoagulanttherap y. INDICATION INR VALUE -------1. Prophylaxis, deep venous thrombosis, including high risk surgery. 2.0 - 3.0 2. Prophylaxis, deep venous thrombosis, hip surgery, treatment for deep venous thrombosis or pulmonary prevention of systemic embolism in patients with valvular heart disease, atrial fibrillation, tissue heart valve, or acute myocardial infarction. 2.0 - 3.0 3. Mechanical prosthesis heart valves, recurrent systemic embolism. 3.0 - 4.5 PTT [id number] 11:38:00* Test Item Value Reference Range Interpretation Comme nts PTT ACTIVATED (test code = APTT) 38.1 SECONDS 25.1-36.5 H CBC W/AUTO [id number] 11:28:00* Test Item Value Reference Range Interpretation Comme nts WHITE BLOOD CELL (test code = WBC) 8.9 K/MM3 3.8-9.8 N RED BLOOD CELL (test code = RBC) 4.62 M/MM3 3.95-5.67 N HEMOGLOBIN (test code = HGB) 13.1 G/DL 12.4-16.7 N HEMATOCRIT (test code = HCT) 41.4 % 35.9-49.5 N MEAN CELL VOLUME (test code = MCV) 90 fL 81.7-96.1 N MEAN CELL HGB (test code = MCH) 28.4 pg 27.6-33.2 N MEAN CELL HGB CONCETRATION (test code = MCHC) 31.6 % 32.9-35.5 L RED CELL DISTRIBUTION WIDTH (test code = RDW) 14.9 % 12.1-15.2 N PLATELET COUNT (test code = PLT) 280 K/MM3 129-368 N MEAN PLATELET VOLUME (test c ode = MPV) 9.9 fl 7.4-10.4 N NEUTROPHIL % (test code = NT%) 62.9 % 43-75 N IMMATURE GRANULOCYTE % (test code = IG%) 0.5 % 0.0-2.0 N LYMPHOCYTE % (test code = LY%) 26.0 % 14-44 N MONOCYTE % (test code = MO%) 7.9 % 4-13 N EOSINOPHIL % (test code = EO%) 2.1 % 0-6 N BASOPHIL % (test code = BA%) 0.6 % 0-2 N NUCLEATED RBC % (test code = NRBC%) 0.0 % 0-1.0 N NEUTROPHIL # (test code = NT#) 5.59 K/mm3 2.0-7.6 N IMMATURE GRANULOCYTE # (test code = IG#) 0.04 x10 3/uL 0-0.03 H LYMPHOCYTE # (test code = LY#) 2.31 K/mm3 1.0-3.8 N MONOCYTE # (test code = MO#) 0.70 K/mm3 0.1-0.8 N EOSINOPHIL # (test code = EO#) 0.19 K/mm3 0.0-0.2 N BASOPHIL # (test code = BA#) 0.05 K/mm3 0.0-0.2 N NUCLEATED RBC # (test code = NRBC#) 0.00 K/mm3 0.0-0.1 N COVID 19 Asymptomatic IH [id number] 10:41:00* Test Item Value Reference Range Interpretation Comme nts COVID 19 Asymptomatic IH AG (test code = COVNONPUIAG) NEGATIVE Negative "Negative result s from patients with symptom onset beyondfive days, should be treated as presumptive, andconfirmation with a molecular assay, if necessary forpatient management may be performed. Negative results do notrule out COVID-19 and should not be used as the sole basisfor treatment or patient management decisions, includinginfection control decisions. Negative results should beconsidered in the context of a patients recent exposures,history, and the presence of clinical signs and symptomsconsistent with COVID-19.This test detects both viable andnon-viable SARS-CoV and SARS CoV-2.Test performance dependson the amount of virus (antigen) in the sample." XR CHEST 1 [id number] 15:57:40EXAM: XR CHEST 1 VW HISTORY: CHF COMPARISON: None. FINDINGS: The heart and great vessels are normaland the lungs are well expanded andclear. The tip of the single pacemaker electrode is in the apex of theright ventricle. ? [facility], Radiant Results Inft User - 11/19/2020 10:58 AM CDTEXAM: XR CHEST 1 VWHISTORY: CHF COMPARISON: None.FINDINGS:The heart and great vessels are normal and the lungs are well expanded andclear. The tip of the single pacemaker electrode is in the apex of theright ventricle.[facility] (NA, K, CL, CO2, GLUCOSE, BUN, CREATININE, CA)2020-11-19 11:41:43* Test Item Value Reference Range Interpretation Comme [facility] NA (test code = 7365789094) 138 mmol/L 135-145 K (test code = 9754289324) 3.4 mmol/L 3.5-5.0 L CL (test code = 9383583801) 92 mmol/L 98-108 L CO2 TOTAL (test code = 8521500414) 38 mmol/L 23-31 H AGAP (test code = 0530131953) 2-16 BUN (test code = 7853980996) 33 mg/dL 7-23 H GLUCOSE (test code = 7873317585) 108 mg/dL 70-110 CREATININE (test code = 3638281630) 1.01 mg/dL 0.60-1.25 CALCIUM (test code = 4334634553) 8.7 mg/dL 8.6-10.6 eGFR Calculation (Non-) (test code = 9225495949) mL/min/1.73m2 eGFR Calculation () (test code = 0740517231) mL/min/1.73m2 LYSSA (test code = LYSSA) Association of Glomerular Filtration Rate (GFR) and Staging of Kidney Disease* + --+ --+ ------+| GFR (mL/min/1.73 m2) ?| With Kidney Damage ?| ?Without Kidney Damage+ --------+ --------+ +| ?>90 ?| ?Stage one ?| ? Normal ?+ ---+ ---+ -------+| ?60-89 ?| ?Stage two ?| ? Decreased GFR ? + --+ --+ ------+| ?30-59 ?| ?Stage three ?| ? Stage three ? + --+ --+ ------+| ?15-29 ?| ?Stage four ? | ? Stage four ?+ ---+ ---+ -------+| ?<15 (or dialysis) ? ?| ?Stage five ? | ? Stage five ?+ ---+ ---+ -------+ *Each stage assumes the associated GFR level has been in effect for at least three months. ?Stages 1 to 5, with or without kidney disease, indicate chronic kidney disease. Notes: Determination of stages one and two (with eGFR >59mL/min/1.73 m2) requires estimation of kidney damage for at least three months as defined by structural or functional abnormalities of the kidney, manifested by either:Pathological abnormalities or Markers of kidney damage (including abnormalities in the composition of the blood or urine or abnormalities in imaging tests). Lab Interpretation (test code = 25356-9) [facility] 11:41:43* Test Item Value Reference Range Interpretation Comme nts MAGNESIUM (test code = 9497547807) 2.1 mg/dL 1.7-2.4 Lab Interpretation (test cod e = 76082-9) [facility] Kpmxtbwsifse1773-64-92 11:07:18* Test Item Value Reference Range Interpretation Comme nts WBC (test code = 6690-2) See_Comment H [Automated message] The system which generated this result transmitted reference range: 4.20 - 10.70 10*3/?L. The reference range was not used to interpret this result as normal/abnormal. RBC (test code = 789-8) See_Comment [Automated message] The system which generated this result transmitted reference range: 4.26 - 5.52 10*6/?L. The reference range was not used to interpret this result as normal/abnormal. HGB (test code = 718-7) 13.4 g/dL 12.2-16.4 HCT (test code = 4544-3) 42.3 % 38.4-49.3 MCV (test code = 787-2) 85.8 fL 81.7-95.6 MCH (test code = 785-6) 27.2 pg 26.1-32.7 MCHC (test code = 786-4) 31.7 g/dL 31.2-35.0 RDW-SD (test code = 28327-7) 50.5 fL 38.5-51.6 RDW-CV (test code = 788-0) 16.2 % 12.1-15.4 H PLT (test code = 777-3) See_Comment H [Automated message] The system which generated this result transmitted reference range: 150 - 328 10*3/?L. The reference range was not used to interpret this result as normal/abnormal. MPV (test code = 71645-8) 11.0 fL 9.8-13.0 NRBC/100 WBC (test code = 1946780409) See_Comment [Automated message] The system which generated this result transmitted reference range: 0.0 - 10.0 /100 WBCs. The reference range was not used to interpret this result as normal/abnormal. NRBC x10^3 (test code = 5228162864) <0.01 See_Comment [Automated message] The system which generated this result transmitted reference range: 10*3/?L. The reference range was not used to interpret this result as normal/abnormal. GRAN MAT (NEUT) % (test code = 770-8) 78.9 % IMM GRAN % (test code = 6734609411) 0.50 % LYMPH % (test code = 736-9) 13.8 % MONO % (test code = 5905-5) 6.7 % EOS % (test code = 713-8) 0.0 % BASO % (test code = 706-2) 0.1 % GRAN MAT x10^3(ANC) (test code = 9268921854) 14.79 10*3/uL 1.99-6.95 H IMM GRAN x10^3 (test code = 2284302410) 0.10 10*3/uL 0.00-0.06 H LYMPH x10^3 (test code = 731-0) 2.58 10*3/uL 1.09-3.23 MONO x10^3 (test code = 742-7) 1.25 10*3/uL 0.36-1.02 H EOS x10^3 (test code = 711-2) <0.03 0.06-0.53 L BASO x10^3 (test code = 704-7) <0.03 0.01-0.09 Lab Interpretation (test code = 22598-1) [facility] [id number] 03:03:12COVID DMT InterpretationInterpretation/Recommendations: Molecular NAAT Tests for Active Infection with the SARS-CoV-2 Virus: The current test result is positive for the SARS-CoV-2 virus that causes COVID-19 illness. In kpdq-kl-rwofrlfs illness, the patient may be considered no longer infectious when it has been after 10 days since symptom onset, the patient has been afebrile for 24 hours without the use of fever-reducing medications, AND other symptoms of COVID-19 are improving. However, in patients who have been severely ill with COVID-19 or are severely immunocompromised, isolation up to 20days after symptom onset is recommended. Asymptomatic patients are considered infectious for the first 10 days subsequent to the initial positive test result. From the onset of symptoms, if any, thisresult is likely to remain positive up to 2-4 weeks. Tests for IgM and/or IgG Antibodies to the SARS-CoV-2 Virus: ? Testing for IgM and IgG antibodies approximately 3 weeks after illness onset will likely indicate whether the patient has produced antibodies to the SARS-CoV-2 virus. However, some patients may take longer to develop detectable antibodies, while some patients who were infected with SARS-CoV-2 may never develop antibodies. While antibodies to SARS-CoV-2 may provide some degree of im munity, at this time the strength and duration of the antibody response is unknown. Interpretation Result Comments:These interpretation comments are based upon all COVID-19 testing the patient has had at [facility], including molecular NAAT testing (more commonly known as PCR testing and Rapid ID Now testing) and antibody testing.It does not take into account any testing that a patient has had outside of the [facility] medical record. [facility] LABORATORY SERVICESCOVID FzvnxpdIFEU-ChZ-9 Rapid ID NOW (no units) ? ? Date ? Value ? 11/15/2020 ? Positive (A) ? [facility]ORAT[facility] SERVICESUnB[facility] with [id number] 11:21:12* Test Item Value Reference Range Interpretation Comme nts WBC (test code = 6690-2) See_Comment H [Automated message] The system which generated this result transmitted reference range: 4.20 - 10.70 10*3/?L. The reference range was not used to interpret this result as normal/abnormal. RBC (test code = 789-8) See_Comment [Automated message] The system which generated this result transmitted reference range: 4.26 - 5.52 10*6/?L. The reference range was not used to interpret this result as normal/abnormal. HGB (test code = 718-7) 13.4 g/dL 12.2-16.4 HCT (test code = 4544-3) 43.2 % 38.4-49.3 MCV (test code = 787-2) 87.1 fL 81.7-95.6 MCH (test code = 785-6) 27.0 pg 26.1-32.7 MCHC (test code = 786-4) 31.0 g/dL 31.2-35.0 L RDW-SD (test code = 85489-5) 51.6 fL 38.5-51.6 RDW-CV (test code = 788-0) 16.3 % 12.1-15.4 H PLT (test code = 777-3) See_Comment H [Automated message] The system which generated this result transmitted reference range: 150 - 328 10*3/?L. The reference range was not used to interpret this result as normal/abnormal. MPV (test code = 00022-8) 11.3 fL 9.8-13.0 NRBC/100 WBC (test code = 8194087060) See_Comment [Automated message] The system which generated this result transmitted reference range: 0.0 - 10.0 /100 WBCs. The reference range was not used to interpret this result as normal/abnormal. NRBC x10^3 (test code = 4267937169) <0.01 See_Comment [Automated message] The system which generated this result transmitted reference range: 10*3/?L. The reference range was not used to interpret this result as normal/abnormal. GRAN MAT (NEUT) % (test code = 770-8) 90.4 % IMM GRAN % (test code = 3795050583) 0.80 % LYMPH % (test code = 736-9) 6.5 % MONO % (test code = 5905-5) 2.2 % EOS % (test code = 713-8) 0.0 % BASO % (test code = 706-2) 0.1 % GRAN MAT x10^3(ANC) (test code = 7793409027) 16.18 10*3/uL 1.99-6.95 H IMM GRAN x10^3 (test code = 6233134130) 0.14 10*3/uL 0.00-0.06 H LYMPH x10^3 (test code = 731-0) 1.16 10*3/uL 1.09-3.23 MONO x10^3 (test code = 742-7) 0.40 10*3/uL 0.36-1.02 EOS x10^3 (test code = 711-2) <0.03 0.06-0.53 L BASO x10^3 (test code = 704-7) <0.03 0.01-0.09 Lab Interpretation (test code = 82245-2) [facility]normal [facility] [id number] 11:14:33* Test Item Value Reference Range Interpretation Comme nts TROPONIN I (test code = 2549612080) 0.039 ng/mL See_Comment H [Automated message] The system which generated this result transmitted reference range: <=0.034. The reference range was not used to interpret this result as normal/abnormal. LYSSA (test code = LYSSA) Equal or Less than 0.034 ng/ml---Normal ?Note: Cardiac troponin begins to rise 3-4 hours after the onset of ischemia. Repeat in 4-6 hours if the sample was drawn within 3-4 hours of the onset of the symptom and found normal. Between 0.035 and 0.120 ng/mL--- Borderline. Questionable myocardial injury or necrosis ? ?Note: Serial measurement may be necessary to confirm or exclude the diagnosis of myocardial injury or necrosis; Clinical correlation (symptoms, EKGs, imaging studies, and others) required; Repeat in 4-6 hours if clinically indicated. ? Equal or Higher than 0.121 ng/mL---Abnormal. Myocardial Injury or Necrosis Likely ? Biotin has been reported to cause a negative bias, interpret results relative to patient's use of biotin. ? Lab Interpretation (test code = 57033-0) [facility]normal [facility] (NA, K, CL, CO2, GLUCOSE, BUN, CREATININE, CA)2020-11-18 11:11:52* Test Item Value Reference Range Interpretation Comme nts NA (test code = 4977062169) 140 mmol/L 135-145 K (test code = 3410223978) 4.0 mmol/L 3.5-5.0 CL (test code = 9260081563) 92 mmol/L 98-108 L CO2 TOTAL (test code = 5363148681) 37 mmol/L 23-31 H AGAP (test code = 8248409544) 2-16 BUN (test code = 1358886708) 30 mg/dL 7-23 H GLUCOSE (test code = 4134138485) 145 mg/dL 70-110 H CREATININE (test code = 5081158212) 1.02 mg/dL 0.60-1.25 CALCIUM (test code = 1358305396) 9.0 mg/dL 8.6-10.6 eGFR Calculation (Non-) (test code = 6783493656) mL/min/1.73m2 eGFR Calculation () (test code = 7989499581) mL/min/1.73m2 LYSSA (test code = LYSSA) Association of Glomerular Filtration Rate (GFR) and Staging of Kidney Disease* + --+ --+ ------+| GFR (mL/min/1.73 m2) ?| With Kidney Damage ?| ?Without Kidney Damage+ --------+ --------+ +| ?>90 ?| ?Stage one ?| ? Normal ?+ ---+ ---+ -------+| ?60-89 ?| ?Stage two ?| ? Decreased GFR ? + --+ --+ ------+| ?30-59 ?| ?Stage three ?| ? Stage three ? + --+ --+ ------+| ?15-29 ?| ?Stage four ? | ? Stage four ?+ ---+ ---+ -------+| ?<15 (or dialysis) ? ?| ?Stage five ? | ? Stage five ?+ ---+ ---+ -------+ *Each stage assumes the associated GFR level has been in effect for at least three months. ?Stages 1 to 5, with or without kidney disease, indicate chronic kidney disease. Notes: Determination of stages one and two (with eGFR >59mL/min/1.73 m2) requires estimation of kidney damage for at least three months as defined by structural or functional abnormalities of the kidney, manifested by either:Pathological abnormalities or Markers of kidney damage (including abnormalities in the composition of the blood or urine or abnormalities in imaging tests). Lab Interpretation (test code = 45956-8) Abnormal [facility]AL RLE-[id number] 14:01:22* Test Item Value Reference Range Interpretation Comme nts NT-proBNP (test code = 7487749351) 3970 pg/mL See_Comment H [Automated message] The system which generated this result transmitted reference range: <=125. The reference range was not used to interpret this result as normal/abnormal. LYSSA (test code = LYSSA) Biotin has been reported to cause a negative bias, interpret results relative to patient's use of biotin. Lab Interpretation (test code = 49084-7) [facility] Wwwxjektqkpz4920-80-96 12:39:19* Test Item Value Reference Range Interpretation Comme nts WBC (test code = 6690-2) See_Comment H [Automated message] The system which generated this result transmitted reference range: 4.20 - 10.70 10*3/?L. The reference range was not used to interpret this result as normal/abnormal. RBC (test code = 789-8) See_Comment [Automated message] The system which generated this result transmitted reference range: 4.26 - 5.52 10*6/?L. The reference range was not used to interpret this result as normal/abnormal. HGB (test code = 718-7) 13.0 g/dL 12.2-16.4 HCT (test code = 4544-3) 40.5 % 38.4-49.3 MCV (test code = 787-2) 84.9 fL 81.7-95.6 MCH (test code = 785-6) 27.3 pg 26.1-32.7 MCHC (test code = 786-4) 32.1 g/dL 31.2-35.0 RDW-SD (test code = 60360-6) 49.7 fL 38.5-51.6 RDW-CV (test code = 788-0) 16.2 % 12.1-15.4 H PLT (test code = 777-3) See_Comment H [Automated message] The system which generated this result transmitted reference range: 150 - 328 10*3/?L. The reference range was not used to interpret this result as normal/abnormal. MPV (test code = 76402-9) 11.2 fL 9.8-13.0 NRBC/100 WBC (test code = 7972771844) See_Comment [Automated message] The system which generated this result transmitted reference range: 0.0 - 10.0 /100 WBCs. The reference range was not used to interpret this result as normal/abnormal. NRBC x10^3 (test code = 3030855770) <0.01 See_Comment [Automated message] The system which generated this result transmitted reference range: 10*3/?L. The reference range was not used to interpret this result as normal/abnormal. GRAN MAT (NEUT) % (test code = 770-8) 91.3 % IMM GRAN % (test code = 1059547276) 0.40 % LYMPH % (test code = 736-9) 6.4 % MONO % (test code = 5905-5) 1.7 % EOS % (test code = 713-8) 0.1 % BASO % (test code = 706-2) 0.1 % GRAN MAT x10^3(ANC) (test code = 4545820918) 14.32 10*3/uL 1.99-6.95 H IMM GRAN x10^3 (test code = 7486101830) 0.07 10*3/uL 0.00-0.06 H LYMPH x10^3 (test code = 731-0) 1.01 10*3/uL 1.09-3.23 L MONO x10^3 (test code = 742-7) 0.27 10*3/uL 0.36-1.02 L EOS x10^3 (test code = 711-2) <0.03 0.06-0.53 L BASO x10^3 (test code = 704-7) <0.03 0.01-0.09 Lab Interpretation (test code = 14504-1) Abnormal [facility] [id number] 12:36:58* Test Item Value Reference Range Interpretation Comme nts TROPONIN I (test code = 9698568952) 0.049 ng/mL See_Comment H [Automated message] The system which generated this result transmitted reference range: <=0.034. The reference range was not used to interpret this result as normal/abnormal. LYSSA (test code = LYSSA) Equal or Less than 0.034 ng/ml---Normal ?Note: Cardiac troponin begins to rise 3-4 hours after the onset of ischemia. Repeat in 4-6 hours if the sample was drawn within 3-4 hours of the onset of the symptom and found normal. Between 0.035 and 0.120 ng/mL--- Borderline. Questionable myocardial injury or necrosis ? ?Note: Serial measurement may be necessary to confirm or exclude the diagnosis of myocardial injury or necrosis; Clinical correlation (symptoms, EKGs, imaging studies, and others) required; Repeat in 4-6 hours if clinically indicated. ? Equal or Higher than 0.121 ng/mL---Abnormal. Myocardial Injury or Necrosis Likely ? Biotin has been reported to cause a negative bias, interpret results relative to patient's use of biotin. ? Lab Interpretation (test code = 36976-3) [facility] 12:26:19* Test Item Value Reference Range Interpretation Comme nts MAGNESIUM (test code = 9005403413) 1.8 mg/dL 1.7-2.4 Lab Interpretation (test cod e = 37442-5) Normal [facility] (NA, K, CL, CO2, GLUCOSE, BUN, CREATININE, CA)2020-11-17 12:25:59* Test Item Value Reference Range Interpretation Comme nts NA (test code = 3731457755) 138 mmol/L 135-145 K (test code = 2016509513) 3.8 mmol/L 3.5-5.0 CL (test code = 0763891638) 96 mmol/L 98-108 L CO2 TOTAL (test code = 6816529085) 33 mmol/L 23-31 H AGAP (test code = 8837110816) 2-16 BUN (test code = 9959285706) 22 mg/dL 7-23 GLUCOSE (test code = 7943222869) 155 mg/dL 70-110 H CREATININE (test code = 1007749570) 0.95 mg/dL 0.60-1.25 CALCIUM (test code = 1247248043) 9.2 mg/dL 8.6-10.6 eGFR Calculation (Non-) (test code = 0843103941) mL/min/1.73m2 eGFR Calculation () (test code = 2547027403) mL/min/1.73m2 LYSSA (test code = LYSSA) Association of Glomerular Filtration Rate (GFR) and Staging of Kidney Disease* + --+ --+ ------+| GFR (mL/min/1.73 m2) ?| With Kidney Damage ?| ?Without Kidney Damage+ --------+ --------+ +| ?>90 ?| ?Stage one ?| ? Normal ?+ ---+ ---+ -------+| ?60-89 ?| ?Stage two ?| ? Decreased GFR ? + --+ --+ ------+| ?30-59 ?| ?Stage three ?| ? Stage three ? + --+ --+ ------+| ?15-29 ?| ?Stage four ? | ? Stage four ?+ ---+ ---+ -------+| ?<15 (or dialysis) ? ?| ?Stage five ? | ? Stage five ?+ ---+ ---+ -------+ *Each stage assumes the associated GFR level has been in effect for at least three months. ?Stages 1 to 5, with or without kidney disease, indicate chronic kidney disease. Notes: Determination of stages one and two (with eGFR >59mL/min/1.73 m2) requires estimation of kidney damage for at least three months as defined by structural or functional abnormalities of the kidney, manifested by either:Pathological abnormalities or Markers of kidney damage (including abnormalities in the composition of the blood or urine or abnormalities in imaging tests). Lab Interpretation (test code = 83055-5) [facility] [id number] 22:11:30* Test Item Value Reference Range Interpretation Comme nts TROPONIN I (test code = 4377850933) 0.040 ng/mL See_Comment H [Automated message] The system which generated this result transmitted reference range: <=0.034. The reference range was not used to interpret this result as normal/abnormal. LYSSA (test code = LYSSA) Equal or Less than 0.034 ng/ml---Normal ?Note: Cardiac troponin begins to rise 3-4 hours after the onset of ischemia. Repeat in 4-6 hours if the sample was drawn within 3-4 hours of the onset of the symptom and found normal. Between 0.035 and 0.120 ng/mL--- Borderline. Questionable myocardial injury or necrosis ? ?Note: Serial measurement may be necessary to confirm or exclude the diagnosis of myocardial injury or necrosis; Clinical correlation (symptoms, EKGs, imaging studies, and others) required; Repeat in 4-6 hours if clinically indicated. ? Equal or Higher than 0.121 ng/mL---Abnormal. Myocardial Injury or Necrosis Likely ? Biotin has been reported to cause a negative bias, interpret results relative to patient's use of biotin. ? Lab Interpretation (test code = 38072-1) [facility] [id number] 16:11:20* Test Item Value Reference Range Interpretation Comme nts TROPONIN I (test code = 6126864634) 0.030 ng/mL See_Comment [Automated message] The system which generated this result transmitted reference range: <=0.034. The reference range was not used to interpret this result as normal/abnormal. LYSSA (test code = LYSSA) Equal or Less than 0.034 ng/ml---Normal ?Note: Cardiac troponin begins to rise 3-4 hours after the onset of ischemia. Repeat in 4-6 hours if the sample was drawn within 3-4 hours of the onset of the symptom and found normal. Between 0.035 and 0.120 ng/mL--- Borderline. Questionable myocardial injury or necrosis ? ?Note: Serial measurement may be necessary to confirm or exclude the diagnosis of myocardial injury or necrosis; Clinical correlation (symptoms, EKGs, imaging studies, and others) required; Repeat in 4-6 hours if clinically indicated. ? Equal or Higher than 0.121 ng/mL---Abnormal. Myocardial Injury or Necrosis Likely ? Biotin has been reported to cause a negative bias, interpret results relative to patient's use of biotin. ? Lab Interpretation (test code = 01698-9) [facility] (NA, K, CL, CO2, GLUCOSE, BUN, CREATININE, CA)2020-11-16 12:36:52* Test Item Value Reference Range Interpretation Comme nts NA (test code = 8661107036) 137 mmol/L 135-145 K (test code = 7230846636) 3.8 mmol/L 3.5-5.0 CL (test code = 0061281147) 97 mmol/L 98-108 L CO2 TOTAL (test code = 9066898132) 32 mmol/L 23-31 H AGAP (test code = 4886420606) 2-16 BUN (test code = 1506607229) 16 mg/dL 7-23 GLUCOSE (test code = 5454015858) 203 mg/dL 70-110 H CREATININE (test code = 5456977873) 0.75 mg/dL 0.60-1.25 CALCIUM (test code = 9373035447) 9.3 mg/dL 8.6-10.6 eGFR Calculation (Non-) (test code = 0444162846) mL/min/1.73m2 eGFR Calculation () (test code = 3888966799) mL/min/1.73m2 LYSSA (test code = LYSSA) Association of Glomerular Filtration Rate (GFR) and Staging of Kidney Disease* + --+ --+ ------+| GFR (mL/min/1.73 m2) ?| With Kidney Damage ?| ?Without Kidney Damage+ --------+ --------+ +| ?>90 ?| ?Stage one ?| ? Normal ?+ ---+ ---+ -------+| ?60-89 ?| ?Stage two ?| ? Decreased GFR ? + --+ --+ ------+| ?30-59 ?| ?Stage three ?| ? Stage three ? + --+ --+ ------+| ?15-29 ?| ?Stage four ? | ? Stage four ?+ ---+ ---+ -------+| ?<15 (or dialysis) ? ?| ?Stage five ? | ? Stage five ?+ ---+ ---+ -------+ *Each stage assumes the associated GFR level has been in effect for at least three months. ?Stages 1 to 5, with or without kidney disease, indicate chronic kidney disease. Notes: Determination of stages one and two (with eGFR >59mL/min/1.73 m2) requires estimation of kidney damage for at least three months as defined by structural or functional abnormalities of the kidney, manifested by either:Pathological abnormalities or Markers of kidney damage (including abnormalities in the composition of the blood or urine or abnormalities in imaging tests). Lab Interpretation (test code = 35127-4) [facility] 12:36:52* Test Item Value Reference Range Interpretation Comme nts MAGNESIUM (test code = 2673504894) 1.5 mg/dL 1.7-2.4 L Lab Interpretation (test cod e = 29313-1) [facility] [id number] 11:24:07* Test Item Value Reference Range Interpretation Comme nts TROPONIN I (test code = 8937281987) 0.042 ng/mL See_Comment H [Automated message] The system which generated this result transmitted reference range: <=0.034. The reference range was not used to interpret this result as normal/abnormal. LYSSA (test code = LYSSA) Equal or Less than 0.034 ng/ml---Normal ?Note: Cardiac troponin begins to rise 3-4 hours after the onset of ischemia. Repeat in 4-6 hours if the sample was drawn within 3-4 hours of the onset of the symptom and found normal. Between 0.035 and 0.120 ng/mL--- Borderline. Questionable myocardial injury or necrosis ? ?Note: Serial measurement may be necessary to confirm or exclude the diagnosis of myocardial injury or necrosis; Clinical correlation (symptoms, EKGs, imaging studies, and others) required; Repeat in 4-6 hours if clinically indicated. ? Equal or Higher than 0.121 ng/mL---Abnormal. Myocardial Injury or Necrosis Likely ? Biotin has been reported to cause a negative bias, interpret results relative to patient's use of biotin. ? Lab Interpretation (test code = 18383-3) [facility]AL [id number] 10:46:03* Test Item Value Reference Range Interpretation Comme nts NT-proBNP (test code = 3223556396) 3660 pg/mL See_Comment H [Automated message] The system which generated this result transmitted reference range: <=125. The reference range was not used to interpret this result as normal/abnormal. LYSSA (test code = LYSSA) Biotin has been reported to cause a negative bias, interpret results relative to patient's use of biotin. Lab Interpretation (test code = 58961-7) [facility] CenterCT CHEST PULMONARY [id number] 06:21:49No evidence of acute or chronic pulmonary embolism through the level of thesubsegmental branches. Mild interstitial pulmonary edema with trace bilateral pleural effusion. Preliminary Report Dictated by Resident: Antoni Aviles ?MD Cristine., have reviewed this study and agree withthe above report.PROCEDURE: CT ANGIO CHEST WITH CONTRAST - PE PROTOCOL CLINICAL INDICATION: PE suspected, high pretest prob ? COMPARISON: None. TECHNIQUE: ?Volumetric helical CT angiogram was performed of the chest(lung apices to bases) with IV contrast. Images were reconstructed at 1.25mm slice thickness. Corresponding axial, sagittal and coronal MIP imageswere performed. Axial MIPs and coronal and sagittal MPR images weregenerated and reviewed.. FINDINGS: DEVICES: Left chest wall AICD with its lead terminating within the rightventricle. HEART AND GREAT VESSELS: The opacification of the pulmonary vasculature isappropriate. No filling defects are seen through the level of the segmentalpulmonary arteries. The pulmonary trunk is dilated measuring 3.6 cm indiameter. The thoracic aorta is normal in caliber. The heart is enlarged. No pericardial abnormalities are identified. The RVto LV is normal. MEDIASTINUM AND LOWER NECK: No central airway lesions are detected. Theesophagus is within normal limits. The included thyroid gland appearsnormal. LYMPH NODES: Scattered small lymph nodes in both sides of the mediastinumand hilar regions. No evidence of intrathoracic lymphadenopathy. LUNGS AND PLEURA: The lungs are well-expanded with prominent interstitialmarkings and confluent groundglass opacities. Bibasilar subsegmentalatelectasis is noted. Trace left greater than right pleural effusion. VISUALIZED UPPER ABDOMEN: The included solid organs and hollow viscusappear within normal limits. Partially visualized hepatomegaly. Priorcholecystectomy. Mild contrastreflux into the infracardiac IVC and hepaticveins. OSSEOUS STRUCTURES AND SOFT TISSUES: No osseous lesion is identified. Thesoft tissues appear normal. Flowing bridging osteophytes are noted withinthe midthoracic spine. [facility], Radiant Results Inft User - 11/16/2020 1:22 AM CDTPROCEDURE: CT ANGIO CHEST WITH CONTRAST - PE PROTOCOLCLINICAL INDICATION: PE suspected, highpretest prob COMPARISON: None.TECHNIQUE: Volumetric helical CT angiogram was performed of the chest(lung apices to bases) with IV contrast. Images were reconstructed at 1.25mm slice thickness. Corresponding axial, sagittal and coronal MIP imageswere performed. Axial MIPs and coronal and sagittal MPR images weregenerated and reviewed..FINDINGS:DEVICES: Left chest wall AICD with its lead terminating within the rightventricle.HEART AND GREAT VESSELS: The opacification of the pulmonary vasculature isappropriate. No filling defects are seen through the level of the segmentalpulmonary arteries. Thepulmonary trunk is dilated measuring 3.6 cm indiameter. The thoracic aorta is normal in caliber.Theheart is enlarged. No pericardial abnormalities are identified. The RVto LV is normal. MEDIASTINUM AND LOWER NECK: No central airway lesions are detected. Theesophagus is within normal limits. The included thyroid gland appearsnormal.LYMPH NODES: Scattered small lymph nodes in both sides of the mediastinumand hilar regions. No evidence of intrathoracic lymphadenopathy.LUNGS AND PLEURA: The lungs are well-expanded with prominent interstitialmarkings and confluent groundglass opacities. Bibasilarsubsegmentalatelectasis is noted. Trace left greater than right pleural effusion.VISUALIZED UPPER ABDOMEN: The included solid organs and hollow viscusappear within normal limits. Partially visualizedhepatomegaly. Priorcholecystectomy. Mild contrast reflux into the infracardiac IVC and hepaticveins.OSSEOUS STRUCTURES AND SOFT TISSUES: No osseous lesion is identified. Thesoft tissues appear normal. Flowing bridging osteophytes are noted withinthe midthoracic spine. IMPRESSIONNo evidence of acute or chronic pulmonary embolism through the level of thesubsegmental branches.Mild interstitial pulmonary edema with trace bilateral pleural effusion. Preliminary Report Dictated by Resident: Antoni Lopez MD., have reviewed this study and agree withthe above report.[facility] 2020-11-16 06:06:25Pulmonary vascular congestion with stable mild cardiomegaly. Preliminary Report Dictated by Resident: Antoni Diallo MD., have reviewed this study and agree withthe above report.EXAM: XR CHEST 1 VW HISTORY: shortness of breath COMPARISON: Chest x-ray dated 07/25/2019.TECHNIQUE: ?Single ?PA view radiograph of the chest. FINDINGS: The left-sided chest wall AICD single lead projects over the rightventricle. Minimal increase in the pulmonary vascular markings is noted. No focalconsolidation, pleural effusion or pneumothorax. The heart is enlarged, unchanged. No acute osseous abnormality is identified. [facility], Radiant Results Inft User - 11/16/2020 1:07 AM CDTEXAM: XR CHEST 1 VWHISTORY: shortness of breath COMPARISON: Chest x- ray dated 07/25/2019.TECHNIQUE: SinglePA view radiograph of the chest.FINDINGS:The left-sided chest wall AICD single lead projects over the rightventricle.Minimal increase in the pulmonary vascular markings is noted. No focalconsolidation, pleural effusion or pneumothorax.The heart is enlarged, unchanged.No acute osseous abnormality isidentified.IMPRESSIONPulmonary vascular congestion with stable mild cardiomegaly.Preliminary ReportDictated by Resident: Antoni Mendoza MD., have reviewed this study and agree withthe above report.[facility] CenterCOVID-19 (ID NOW RAPID TESTING)2020-11-16 01:34:44* Test Item Value Reference Range Interpretation Comme nts SARS-CoV-2 Rapid ID NOW (test code = 75562-2) Positive Not Detected A LYSSA (test code = LYSSA) ID NOW COVID-19 As say is an isothermal nucleic acid amplification test intended for the qualitative detection of nucleic acid from SARS-CoV-2 viral RNA in nasopharyngeal ([employer]TER[employer]ERSON) specimens. It is used under Emergency Use Authorization (EUA) by FDA. The limit of detection (LOD) of the assay is 125 Genome Equivalents/mL. A positive result is indicative of the presence of SARS-CoV-2 RNA. ?Clinical correlation with patient history and other diagnostic information is necessary to determine patient infection status. A negative (Not Detected) result does not preclude SARS-CoV-2 infection. In patients with clinical symptoms and other tests that are consistent with SARS-CoV-2 infection, negative results should be treated as presumptive negative and a new specimen should be tested with alternative PCR molecular test. Invalid: Please collect a new specimen for repeat patient testing if clinically indicated. Lab Interpretation (test code = 12786-6) [facility]normal [facility] CenterURINALYSIS2021-03-20 01:20:18* Test Item Value Reference Range Interpretation Comme nts APPEARANCE (test code = 1949859647) Clear Clear COLOR (test code = 6587943899) Yellow Yellow PH (test code = 9784907040) 4.8-8.0 SP GRAVITY (test code = 7977036924) 1.003-1.030 GLU U QUAL (test code = 9083251335) Normal Normal BLOOD (test code = 7212632911) Negative Negative KETONES (test code = 2285574813) Negative Negative PROTEIN (test code = 2887-8) 100 mg/dL Negative A UROBILIN (test code = 7655451056) 2.0 mg/dL Normal A BILIRUBIN (test code = 8611682874) Negative Negative NITRITE (test code = 8597770449) Negative Negative LEUK ROBIN (test code = 3164009099) Negative Negative RBC/HPF (test code = 5679722305) See_Comment [[employer]] The system which generated this result transmitted reference range: 0 - 3 HPF. The reference range was not used to interpret this result as normal/abnormal. WBC/HPF (test code = 0187391753) See_Comment [[employer]] The system which generated this result transmitted reference range: 0 - 5 HPF. The reference range was not used to interpret this result as normal/abnormal. BACTERIA (test code = 8947766109) Negative Negative SQ EPITH (test code = 8997563831) HPF Lab Interpretation (test code = 68087-4) [facility] [id number] 01:01:20* Test Item Value Reference Range Interpretation Comme nts TROPONIN I (test code = 9886868839) 0.055 ng/mL See_Comment H [Automated message] The system which generated this result transmitted reference range: <=0.034. The reference range was not used to interpret this result as normal/abnormal. LYSSA (test code = LYSSA) Equal or Less than 0.034 ng/ml---Normal ?Note: Cardiac troponin begins to rise 3-4 hours after the onset of ischemia. Repeat in 4-6 hours if the sample was drawn within 3-4 hours of the onset of the symptom and found normal. Between 0.035 and 0.120 ng/mL--- Borderline. Questionable myocardial injury or necrosis ? ?Note: Serial measurement may be necessary to confirm or exclude the diagnosis of myocardial injury or necrosis; Clinical correlation (symptoms, EKGs, imaging studies, and others) required; Repeat in 4-6 hours if clinically indicated. ? Equal or Higher than 0.121 ng/mL---Abnormal. Myocardial Injury or Necrosis Likely ? Biotin has been reported to cause a negative bias, interpret results relative to patient's use of biotin. ? Lab Interpretation (test code = 19640-1) [facility]normal [facility] CenterN-TERMINAL [id number] 00:58:18* Test Item Value Reference Range Interpretation Comme nts NT-proBNP (test code = 2148343926) 3390 pg/mL See_Comment H [Automated message] The system which generated this result transmitted reference range: <=125. The reference range was not used to interpret this result as normal/abnormal. LYSSA (test code = LYSSA) Biotin has been reported to cause a negative bias, interpret results relative to patient's use of biotin. Lab Interpretation (test code = 58643-6) [facility] CenterCOMP. METABOLIC PANEL (58536)2020-11-16 00:49:18* Test Item Value Reference Range Interpretation Comme nts NA (test code = 7204373777) 136 mmol/L 135-145 K (test code = 4263093025) 3.9 mmol/L 3.5-5.0 CL (test code = 3480061353) 98 mmol/L 98-108 CO2 TOTAL (test code = 9786360479) 32 mmol/L 23-31 H AGAP (test code = 6756074627) 2-16 BUN (test code = 5781983110) 16 mg/dL 7-23 GLUCOSE (test code = 0760989783) 99 mg/dL 70-110 CREATININE (test code = 9943504973) 0.91 mg/dL 0.60-1.25 TOTAL BILI (test code = 6139272102) 0.6 mg/dL 0.1-1.1 CALCIUM (test code = 3978302429) 8.8 mg/dL 8.6-10.6 T PROTEIN (test code = 5266701016) 7.7 g/dL 6.3-8.2 ALBUMIN (test code = 1629721716) 4.1 g/dL 3.5-5.0 ALK PHOS (test code = 4727590369) 119 U/L 34-122 ALTv (test code = 1742-6) 23 U/L 5-50 AST(SGOT) (test code = 6717861986) 31 U/L 13-40 eGFR Calculation (Non-) (test code = 7861322006) mL/min/1.73m2 eGFR Calculation () (test code = 3866184478) mL/min/1.73m2 LYSSA (test code = LYSSA) Association of Glomerular Filtration Rate (GFR) and Staging of Kidney Disease* + --+ --+ ------+| GFR (mL/min/1.73 m2) ?| With Kidney Damage ?| ?Without Kidney Damage+ --------+ --------+ +| ?>90 ?| ?Stage one ?| ? Normal ?+ ---+ ---+ -------+| ?60-89 ?| ?Stage two ?| ? Decreased GFR ? + --+ --+ ------+| ?30-59 ?| ?Stage three ?| ? Stage three ? + --+ --+ ------+| ?15-29 ?| ?Stage four ? | ? Stage four ?+ ---+ ---+ -------+| ?<15 (or dialysis) ? ?| ?Stage five ? | ? Stage five ?+ ---+ ---+ -------+ *Each stage assumes the associated GFR level has been in effect for at least three months. ?Stages 1 to 5, with or without kidney disease, indicate chronic kidney disease. Notes: Determination of stages one and two (with eGFR >59mL/min/1.73 m2) requires estimation of kidney damage for at least three months as defined by structural or functional abnormalities of the kidney, manifested by either:Pathological abnormalities or Markers of kidney damage (including abnormalities in the composition of the blood or urine or abnormalities in imaging tests). Lab Interpretation (test code = 96634-3) [facility] WITH [id number] 00:40:23* Test Item Value Reference Range Interpretation Comme nts WBC (test code = 6690-2) See_Comment [[employer]] The system which generated this result transmitted reference range: 4.20 - 10.70 10*3/?L. The reference range was not used to interpret this result as normal/abnormal. RBC (test code = 789-8) See_Comment [[employer]] The system which generated this result transmitted reference range: 4.26 - 5.52 10*6/?L. The reference range was not used to interpret this result as normal/abnormal. HGB (test code = 718-7) 12.1 g/dL 12.2-16.4 L HCT (test code = 4544-3) 39.2 % 38.4-49.3 MCV (test code = 787-2) 86.3 fL 81.7-95.6 MCH (test code = 785-6) 26.7 pg 26.1-32.7 MCHC (test code = 786-4) 30.9 g/dL 31.2-35.0 L RDW-SD (test code = 38430-7) 49.1 fL 38.5-51.6 RDW-CV (test code = 788-0) 15.7 % 12.1-15.4 H PLT (test code = 777-3) See_Comment [Automated messa ge] The system which generated this result transmitted reference range: 150 - 328 10*3/?L. The reference range was not used to interpret this result as normal/abnormal. MPV (test code = 92095-5) 10.9 fL 9.8-13.0 NRBC/100 WBC (test code = 5768432003) See_Comment [Automated [employer] ssage] The system which generated this result transmitted reference range: 0.0 - 10.0 /100 WBCs. The reference range was not used to interpret this result as normal/abnormal. NRBC x10^3 (test code = 5291287508) <0.01 See_Comment [Automated messa ge] The system which generated this result transmitted reference range: 10*3/?L. The reference range was not used to interpret this result as normal/abnormal. GRAN MAT (NEUT) % (test code = 770-8) 54.7 % IMM GRAN % (test code = 8202184863) 0.50 % LYMPH % (test code = 736-9) 31.7 % MONO % (test code = 5905-5) 10.5 % EOS % (test code = 713-8) 1.7 % BASO % (test code = 706-2) 0.9 % GRAN MAT x10^3(ANC) (test code = 7211282157) 4.06 10*3/uL 1.99-6.95 IMM GRAN x10^3 (test code = 9844884650) 0.04 10*3/uL 0.00-0.06 LYMPH x10^3 (test code = 731-0) 2.36 10*3/uL 1.09-3.23 MONO x10^3 (test code = 742-7) 0.78 10*3/uL 0.36-1.02 EOS x10^3 (test code = 711-2) 0.13 10*3/uL 0.06-0.53 BASO x10^3 (test code = 704-7) 0.07 10*3/uL 0.01-0.09 Lab Interpretation (test code = 98365-5) [facility] CenterURIC [id number] 19:36:00* Test Item Value Reference Range Interpretation Comme nts URIC ACID (test code = 1452612120) 14.9 mg/dL 3.6-8 H Lab Interpretation (test cod e = 74132-0) [facility] CenterCOMP. METABOLIC PANEL (53772)2020-04-11 19:36:00* Test Item Value Reference Range Interpretation Comme nts NA (test code = 8185250110) 136 mmol/L 135-145 K (test code = 2370291404) 3.2 mmol/L 3.5-5 L CL (test code = 2288666143) 91 mmol/L 98-108 L CO2 TOTAL (test code = 1868552521) 36 mmol/L 23-31 H AGAP (test code = 5572603048) 2-16 BUN (test code = 3015604536) 26 mg/dL 7-23 H GLUCOSE (test code = 8860485908) 90 mg/dL 70-110 CREATININE (test code = 2493842209) 1.24 mg/dL 0.6-1.25 TOTAL BILI (test code = 9842813732) 0.4 mg/dL 0.1-1.1 CALCIUM (test code = 0817363637) 8.8 mg/dL 8.6-10.6 T PROTEIN (test code = 6026005497) 7.8 g/dL 6.3-8.2 ALBUMIN (test code = 7486145616) 4.0 g/dL 3.5-5 ALK PHOS (test code = 0848359891) 116 U/L 34-122 ALTv (test code = 1742-6) 24 U/L 5-50 AST(SGOT) (test code = 0497252147) 26 U/L 13-40 eGFR Calculation (Non-) (test code = 0090426299) mL/min/1.73m2 eGFR Calculation () (test code = 8701529671) mL/min/1.73m2 LYSSA (test code = LYSSA) Association of Glomerular Filtration Rate (GFR) and Staging of Kidney Disease* + --+ --+ ------+| GFR (mL/min/1.73 m2) ?| With Kidney Damage ?| ?Without Kidney Damage+ --------+ --------+ +| ?>90 ?| ?Stage one ?| ? Normal ?+ ---+ ---+ -------+| ?60-89 ?| ?Stage two ?| ? Decreased GFR ? + --+ --+ ------+| ?30-59 ?| ?Stage three ?| ? Stage three ? + --+ --+ ------+| ?15-29 ?| ?Stage four ? | ? Stage four ?+ ---+ ---+ -------+| ?<15 (or dialysis) ? ?| ?Stage five ? | ? Stage five ?+ ---+ ---+ -------+ *Each stage assumes the associated GFR level has been in effect for at least three months. ?Stages 1 to 5, with or without kidney disease, indicate chronic kidney disease. Notes: Determination of stages one and two (with eGFR >59mL/min/1.73 m2) requires estimation of kidney damage for at least three months as defined by structural or functional abnormalities of the kidney, manifested by either:Pathological abnormalities or Markers of kidney damage (including abnormalities in the composition of the blood or urine or abnormalities in imaging tests). Lab Interpretation (test code = 04958-2) [facility] WITH [id number] 19:13:00* Test Item Value Reference Range Interpretation Comme nts WBC (test code = 6690-2) See_Comment [[employer]] The system which generated this result transmitted reference range: 4.20 - 10.70 10*3/?L. The reference range was not used to interpret this result as normal/abnormal. RBC (test code = 789-8) See_Comment [[employer]] The system which generated this result transmitted reference range: 4.26 - 5.52 10*6/?L. The reference range was not used to interpret this result as normal/abnormal. HGB (test code = 718-7) 13.7 g/dL 12.2-16.4 HCT (test code = 4544-3) 42.7 % 38.4-49.3 MCV (test code = 787-2) 87.7 fL 81.7-95.6 MCH (test code = 785-6) 28.1 pg 26.1-32.7 MCHC (test code = 786-4) 32.1 g/dL 31.2-35 RDW-SD (test code = 33009-5) 49.4 fL 38.5-51.6 RDW-CV (test code = 788-0) 15.4 % 12.1-15.4 PLT (test code = 777-3) See_Comment [Automated messa ge] The system which generated this result transmitted reference range: 150 - 328 10*3/?L. The reference range was not used to interpret this result as normal/abnormal. MPV (test code = 47257-5) 10.8 fL 9.8-13 NRBC/100 WBC (test code = 2079700177) See_Comment [[employer] ssage] The system which generated this result transmitted reference range: 0.0 - 10.0 /100 WBCs. The reference range was not used to interpret this result as normal/abnormal. NRBC x10^3 (test code = 0594731397) <0.01 See_Comment [Automated me ssage] The system which generated this result transmitted reference range: 10*3/?L. The reference range was not used to interpret this result as normal/abnormal. GRAN MAT (NEUT) % (test code = 770-8) 57.4 % IMM GRAN % (test code = 7957913222) 0.20 % LYMPH % (test code = 736-9) 30.7 % MONO % (test code = 5905-5) 9.2 % EOS % (test code = 713-8) 1.7 % BASO % (test code = 706-2) 0.8 % GRAN MAT x10^3(ANC) (test code = 2579031146) 4.87 10*3/uL 1.99-6.95 IMM GRAN x10^3 (test code = 1341843151) <0.03 0-0.06 LYMPH x10^3 (test code = 731-0) 2.60 10*3/uL 1.09-3.23 MONO x10^3 (test code = 742-7) 0.78 10*3/uL 0.36-1.02 EOS x10^3 (test code = 711-2) 0.14 10*3/uL 0.06-0.53 BASO x10^3 (test code = 704-7) 0.07 10*3/uL 0.01-0.09 [facility] [id number] 00:31:00* Test Item Value Reference Range Interpretation Comme nts TEST DATE (test code = 3076) 09/22/2019 CELL SRCE (test code = 3078) PB HLA B (test code = 3081) HLA B (test code = 3082) HLA Bw (test code = 3083) HLA Bw (test code = 3084) COMMENTS (test code = 3093) HLA-B*58:01 is ABSENTHLA Antigens were identified by PCR-SSO techniques. Performed at [facility] - Tissue AntigenDIRECTOR: ?JESSICA BYRNE MD, [id number] [place] [address] ?[id number]: [phone] No. [id number] ANALYTE SPECIFIC REAGENT STATEMENT: ?This test was developed and its performance characteristics determined by the [facility] Tissue Antigen Laboratory. ?The test has not been cleared or approved by the [place] [employer] (USFDA). ?The USFDA does not require licensing of reagents used in these tests. VERIFIED BY: ?Isai Harvey (electronic signature) 09/29/2019 REPORT DTE (test code = 3094) 09/29/2019 TECH (test code = 3095) EP [facility] [id number] 00:31:00* Test Item Value Reference Range Interpretation Comme nts TEST DATE (test code = 3076) 09/22/2019 CELL SRCE (test code = 3078) PB HLA B (test code = 3081) HLA B (test code = 3082) HLA Bw (test code = 3083) HLA Bw (test code = 3084) COMMENTS (test code = 3093) HLA-B*58:01 is ABSENTHLA Antigens were identified by PCR-SSO techniques. Performed at [facility] - Tissue AntigenDIRECTOR: ?JESSICA BYRNE MD, URT[address] [place], [place] ?[address]Jpjgm: [phone] No. [id number] ANALYTE SPECIFIC REAGENT STATEMENT: ?This test was developed and its performance characteristics determined by the [facility] Tissue Antigen Laboratory. ?The test has not been cleared or approved by the [place] [employer] (USFDA). ?The USFDA does not require licensing of reagents used in these tests. VERIFIED BY: ?Isai Harvey (electronic signature) 09/29/2019 REPORT DTE (test code = 3094) 09/29/2019 TECH (test code = 3095) EP [facility] [place] [facility] CenterCYCLIC CITRULLINATED [id number] 22:34:00* Test Item Value Reference Range Interpretation Comme nts CCP IgG/IgA (test code = 3374155819) 5.6 U 0-20 LYSSA (test code = LYSSA) INTERPRETATION: UNITS: Negative <20Weak Positive 20-39Moderate Positive 40-59Strong Positive >=60 A positive result indicates the presence of CCP IgG antibodies and suggests the possibility of RA antibodies and suggests the possibility of SLE. A negative result indicates no CCP IgG antibodies or levels below the cut-off ofthe assay. Lab Interpretation (test code = 86001-2) Normal [facility] CITRULLINATED [id number] 22:34:00* Test Item Value Reference Range Interpretation Comme nts CCP IgG/IgA (test code = 1524252005) 5.6 U 0-20 LYSSA (test code = LYSSA) INTERPRETATION: UNITS: Negative <20Weak Positive 20-39Moderate Positive 40-59Strong Positive >=60 A positive result indicates the presence of CCP IgG antibodies and suggests the possibility of RA antibodies and suggests the possibility of SLE. A negative result indicates no CCP IgG antibodies or levels below the cut-off ofthe assay. Lab Interpretation (test code = 30663-5) Normal [facility] CITRULLINATED [id number] 22:34:00* Test Item Value Reference Range Interpretation Comme nts CCP IgG/IgA (test code = 1536597212) 5.6 U 0-20 LYSSA (test code = LYSSA) INTERPRETATION: UNITS: Negative <20Weak Positive 20-39Moderate Positive 40-59Strong Positive >=60 A positive result indicates the presence of CCP IgG antibodies and suggests the possibility of RA antibodies and suggests the possibility of SLE. A negative result indicates no CCP IgG antibodies or levels below the cut-off ofthe assay. Lab Interpretation (test code = 49617-2) Normal [address]01-17 16:08:00* Test Item Value Reference Range Interpretation Comme nts RF (test code = 8159816389) <20 See_Comment [Automated messa ge] The system which generated this result transmitted reference range: <20 IU/mL. The reference range was not used to interpret this result as normal/abnormal. Lab Interpretation (test code = 87886-1) [address]01-17 16:08:00* Test Item Value Reference Range Interpretation Comme nts RF (test code = 4310402785) <20 See_Comment [Automated messa ge] The system which generated this result transmitted reference range: <20 IU/mL. The reference range was not used to interpret this result as normal/abnormal. Lab Interpretation (test code = 25686-1) [address]01-17 16:08:00* Test Item Value Reference Range Interpretation Comme nts RF (test code = 7132168305) <20 See_Comment [Automated messa ge] The system which generated this result transmitted reference range: <20 IU/mL. The reference range was not used to interpret this result as normal/abnormal. Lab Interpretation (test code = 27423-7) [address]01-17 16:08:00* Test Item Value Reference Range Interpretation Comme nts RF (test code = 1850197262) <20 See_Comment [Automated messa ge] The system which generated this result transmitted reference range: <20 IU/mL. The reference range was not used to interpret this result as normal/abnormal. Lab Interpretation (test code = 22480-5) [address]01-17 16:08:00* Test Item Value Reference Range Interpretation Comme nts RF (test code = 7699317681) <20 See_Comment [Automated messa ge] The system which generated this result transmitted reference range: <20 IU/mL. The reference range was not used to interpret this result as normal/abnormal. Lab Interpretation (test code = 28454-8) Normal [facility] CenterHCV [id number] 20:34:00* Test Item Value Reference Range Interpretation Comme nts HCV Ab (test code = 72445-6) Negative HCV Semi-Quantitative (test code = 29645-4) [facility] CenterH[facility] [id number] 20:34:00* Test Item Value Reference Range Interpretation Comme nts HCV Ab (test code = 02760-8) Negative HCV Semi-Quantitative (test code = 56909-3) [facility] [id number] 20:34:00* Test Item Value Reference Range Interpretation Comme nts HCV Ab (test code = 31694-6) Negative HCV Semi-Quantitative (test code = 03257-1) [facility] CenterH[facility] [id number] 20:34:00* Test Item Value Reference Range Interpretation Comme nts HCV Ab (test code = 53197-6) Negative HCV Semi-Quantitative (test code = 01427-0) [facility] CenterHCV [id number] 20:34:00* Test Item Value Reference Range Interpretation Comme nts HCV Ab (test code = 44147-1) Negative HCV Semi-Quantitative (test code = 03927-5) [facility] [place] [facility] CenterTHYROID STIMULATING [id number] 20:16:00 * Test Item Value Reference Range Interpretation Comme nts TSH (test code = 3726023395) See_Comment [Automated unrivala ge] The system which generated this result transmitted reference range: 0.45 - 4.70 mIU/L. The reference range was not used to interpret this result as normal/abnormal. Lab Interpretation (test code = 10775-6) Normal [facility] [place] [facility] CenterTHYROID STIMULATING [id number] 20:16:00 * Test Item Value Reference Range Interpretation Comme nts TSH (test code = 9789230233) See_Comment [Automated unrivala ge] The system which generated this result transmitted reference range: 0.45 - 4.70 mIU/L. The reference range was not used to interpret this result as normal/abnormal. Lab Interpretation (test code = 58492-6) Normal [facility] [place] [facility] CenterTH[facility] STIM[facility]ATING [id number] 20:16:00 * Test Item Value Reference Range Interpretation Comme nts TSH (test code = 8356222623) See_Comment [Automated messa ge] The system which generated this result transmitted reference range: 0.45 - 4.70 mIU/L. The reference range was not used to interpret this result as normal/abnormal. Lab Interpretation (test code = 35536-4) Normal [facility] [id number] 20:16:00 * Test Item Value Reference Range Interpretation Comme nts TSH (test code = 6863575126) See_Comment [Automated messa ge] The system which generated this result transmitted reference range: 0.45 - 4.70 mIU/L. The reference range was not used to interpret this result as normal/abnormal. Lab Interpretation (test code = 95059-0) [facility]2020-01-16 20:16:00 * Test Item Value Reference Range Interpretation Comme nts TSH (test code = 6265091614) See_Comment [Automated messa ge] The system which generated this result transmitted reference range: 0.45 - 4.70 mIU/L. The reference range was not used to interpret this result as normal/abnormal. Lab Interpretation (test code = 91762-2) [place] [address]2020-01-16 20:03:00* Test Item Value Reference Range Interpretation Comme nts FREE T4 (test code = 1443463826) See_Comment [Automated messa ge] The system which generated this result transmitted reference range: 0.78 - 2.20 ng/dL:. The reference range was not used to interpret this result as normal/abnormal. Lab Interpretation (test code = 97916-4) Normal [place] [address]2020-01-16 20:03:00* Test Item Value Reference Range Interpretation Comme nts FREE T4 (test code = 5143894882) See_Comment [Automated messa ge] The system which generated this result transmitted reference range: 0.78 - 2.20 ng/dL:. The reference range was not used to interpret this result as normal/abnormal. Lab Interpretation (test code = 37845-8) [place] [address]2020-01-16 20:03:00* Test Item Value Reference Range Interpretation Comme nts FREE T4 (test code = 9586303674) See_Comment [Automated messa ge] The system which generated this result transmitted reference range: 0.78 - 2.20 ng/dL:. The reference range was not used to interpret this result as normal/abnormal. Lab Interpretation (test code = 87268-2) Normal [facility] [id number] 20:03:00* Test Item Value Reference Range Interpretation Comme nts FREE T4 (test code = 9100904201) See_Comment [Automated messa ge] The system which generated this result transmitted reference range: 0.78 - 2.20 ng/dL:. The reference range was not used to interpret this result as normal/abnormal. Lab Interpretation (test code = 75241-3) Normal [facility] [id number] 20:03:00* Test Item Value Reference Range Interpretation Comme nts FREE T4 (test code = 4080695171) See_Comment [Automated messa ge] The system which generated this result transmitted reference range: 0.78 - 2.20 ng/dL:. The reference range was not used to interpret this result as normal/abnormal. Lab Interpretation (test code = 86454-2) Normal [facility] [place] [facility] CenterURIC [id number] 19:39:00* Test Item Value Reference Range Interpretation Comme nts URIC ACID (test code = 0476588030) 16.6 mg/dL 3.6-8 H Lab Interpretation (test cod e = 18152-8) Abnormal [facility]. METABOLIC PANEL (59589)2019-09-14 19:39:00* Test Item Value Reference Range Interpretation Comme nts NA (test code = 3070198047) 138 mmol/L 135-145 K (test code = 3557234270) 3.7 mmol/L 3.5-5 CL (test code = 4911907972) 92 mmol/L 98-108 L CO2 TOTAL (test code = 2624271147) 32 mmol/L 23-31 H AGAP (test code = 0737890896) 2-16 BUN (test code = 9880632718) 53 mg/dL 7-23 H GLUCOSE (test code = 1190123667) 130 mg/dL 70-110 H CREATININE (test code = 8860066816) 1.60 mg/dL 0.6-1.25 H TOTAL BILI (test code = 9710212802) 0.4 mg/dL 0.1-1.1 CALCIUM (test code = 6133788774) 9.4 mg/dL 8.6-10.6 T PROTEIN (test code = 3871253677) 8.1 g/dL 6.3-8.2 ALBUMIN (test code = 8541888864) 4.2 g/dL 3.5-5 ALK PHOS (test code = 6573900108) 112 U/L 34-122 ALTv (test code = 1742-6) 18 U/L 5-50 AST(SGOT) (test code = 8855640366) 26 U/L 13-40 eGFR Calculation (Non-) (test code = 0447002977) mL/min/1.73m2 eGFR Calculation () (test code = 5248513504) mL/min/1.73m2 LYSSA (test code = LYSSA) Association of Glomerular Filtration Rate (GFR) and Staging of Kidney Disease* + --+ --+ ------+| GFR (mL/min/1.73 m2) ?| With Kidney Damage ?| ?Without Kidney Damage+ --------+ --------+ +| ?>90 ?| ?Stage one ?| ? Normal ?+ ---+ ---+ -------+| ?60-89 ?| ?Stage two ?| ? Decreased GFR ? + --+ --+ ------+| ?30-59 ?| ?Stage three ?| ? Stage three ? + --+ --+ ------+| ?15-29 ?| ?Stage four ? | ? Stage four ?+ ---+ ---+ -------+| ?<15 (or dialysis) ? ?| ?Stage five ? | ? Stage five ?+ ---+ ---+ -------+ *Each stage assumes the associated GFR level has been in effect for at least three months. ?Stages 1 to 5, with or without kidney disease, indicate chronic kidney disease. Notes: Determination of stages one and two (with eGFR >59mL/min/1.73 m2) requires estimation of kidney damage for at least three months as defined by structural or functional abnormalities of the kidney, manifested by either:Pathological abnormalities or Markers of kidney damage (including abnormalities in the composition of the blood or urine or abnormalities in imaging tests). Lab Interpretation (test code = 52931-6) [facility]normal [facility] CenterURIC [id number] 19:39:00* Test Item Value Reference Range Interpretation Comme nts URIC ACID (test code = 6036968372) 16.6 mg/dL 3.6-8 H Lab Interpretation (test cod e = 31673-4) [facility]normal [facility] CenterCOMP[facility] METABOLIC PANEL (41994)2019-09-14 19:39:00* Test Item Value Reference Range Interpretation Comme nts NA (test code = 1249843797) 138 mmol/L 135-145 K (test code = 2024013769) 3.7 mmol/L 3.5-5 CL (test code = 6813977287) 92 mmol/L 98-108 L CO2 TOTAL (test code = 3489201945) 32 mmol/L 23-31 H AGAP (test code = 3567496925) 2-16 BUN (test code = 8926303500) 53 mg/dL 7-23 H GLUCOSE (test code = 4005409919) 130 mg/dL 70-110 H CREATININE (test code = 5755769308) 1.60 mg/dL 0.6-1.25 H TOTAL BILI (test code = 2089520236) 0.4 mg/dL 0.1-1.1 CALCIUM (test code = 4476395582) 9.4 mg/dL 8.6-10.6 T PROTEIN (test code = 2849668305) 8.1 g/dL 6.3-8.2 ALBUMIN (test code = 4976871298) 4.2 g/dL 3.5-5 ALK PHOS (test code = 0185235456) 112 U/L 34-122 ALTv (test code = 1742-6) 18 U/L 5-50 AST(SGOT) (test code = 5193205606) 26 U/L 13-40 eGFR Calculation (Non-) (test code = 3207551556) mL/min/1.73m2 eGFR Calculation () (test code = 6277372235) mL/min/1.73m2 LYSSA (test code = LYSSA) Association of Glomerular Filtration Rate (GFR) and Staging of Kidney Disease* + --+ --+ ------+| GFR (mL/min/1.73 m2) ?| With Kidney Damage ?| ?Without Kidney Damage+ --------+ --------+ +| ?>90 ?| ?Stage one ?| ? Normal ?+ ---+ ---+ -------+| ?60-89 ?| ?Stage two ?| ? Decreased GFR ? + --+ --+ ------+| ?30-59 ?| ?Stage three ?| ? Stage three ? + --+ --+ ------+| ?15-29 ?| ?Stage four ? | ? Stage four ?+ ---+ ---+ -------+| ?<15 (or dialysis) ? ?| ?Stage five ? | ? Stage five ?+ ---+ ---+ -------+ *Each stage assumes the associated GFR level has been in effect for at least three months. ?Stages 1 to 5, with or without kidney disease, indicate chronic kidney disease. Notes: Determination of stages one and two (with eGFR >59mL/min/1.73 m2) requires estimation of kidney damage for at least three months as defined by structural or functional abnormalities of the kidney, manifested by either:Pathological abnormalities or Markers of kidney damage (including abnormalities in the composition of the blood or urine or abnormalities in imaging tests). Lab Interpretation (test code = 85719-4) [facility]normal [facility] [place] [facility] Center[facility] [id number] 19:39:00* Test Item Value Reference Range Interpretation Comme nts URIC ACID (test code = 9630042961) 16.6 mg/dL 3.6-8 H Lab Interpretation (test cod e = 71915-1) [facility]normal [facility] (59518)2019-09-14 19:39:00* Test Item Value Reference Range Interpretation Comme nts NA (test code = 3768473908) 138 mmol/L 135-145 K (test code = 1538236170) 3.7 mmol/L 3.5-5 CL (test code = 3614485409) 92 mmol/L 98-108 L CO2 TOTAL (test code = 4670226893) 32 mmol/L 23-31 H AGAP (test code = 6528231080) 2-16 BUN (test code = 4842068957) 53 mg/dL 7-23 H GLUCOSE (test code = 6158550946) 130 mg/dL 70-110 H CREATININE (test code = 6498380726) 1.60 mg/dL 0.6-1.25 H TOTAL BILI (test code = 5931656601) 0.4 mg/dL 0.1-1.1 CALCIUM (test code = 1035509468) 9.4 mg/dL 8.6-10.6 T PROTEIN (test code = 0054167651) 8.1 g/dL 6.3-8.2 ALBUMIN (test code = 9248690715) 4.2 g/dL 3.5-5 ALK PHOS (test code = 8283336140) 112 U/L 34-122 ALTv (test code = 1742-6) 18 U/L 5-50 AST(SGOT) (test code = 2440669328) 26 U/L 13-40 eGFR Calculation (Non-) (test code = 3709776203) mL/min/1.73m2 eGFR Calculation () (test code = 8400038399) mL/min/1.73m2 LYSSA (test code = LYSSA) Association of Glomerular Filtration Rate (GFR) and Staging of Kidney Disease* + --+ --+ ------+| GFR (mL/min/1.73 m2) ?| With Kidney Damage ?| ?Without Kidney Damage+ --------+ --------+ +| ?>90 ?| ?Stage one ?| ? Normal ?+ ---+ ---+ -------+| ?60-89 ?| ?Stage two ?| ? Decreased GFR ? + --+ --+ ------+| ?30-59 ?| ?Stage three ?| ? Stage three ? + --+ --+ ------+| ?15-29 ?| ?Stage four ? | ? Stage four ?+ ---+ ---+ -------+| ?<15 (or dialysis) ? ?| ?Stage five ? | ? Stage five ?+ ---+ ---+ -------+ *Each stage assumes the associated GFR level has been in effect for at least three months. ?Stages 1 to 5, with or without kidney disease, indicate chronic kidney disease. Notes: Determination of stages one and two (with eGFR >59mL/min/1.73 m2) requires estimation of kidney damage for at least three months as defined by structural or functional abnormalities of the kidney, manifested by either:Pathological abnormalities or Markers of kidney damage (including abnormalities in the composition of the blood or urine or abnormalities in imaging tests). Lab Interpretation (test code = 92142-2) [facility]normal [facility] [id number] 19:39:00* Test Item Value Reference Range Interpretation Comme nts URIC ACID (test code = 8981592235) 16.6 mg/dL 3.6-8 H Lab Interpretation (test cod e = 22819-8) [facility]normal [facility] Center[facility]OL[facility] (89575)2019-09-14 19:39:00* Test Item Value Reference Range Interpretation Comme nts NA (test code = 9178589245) 138 mmol/L 135-145 K (test code = 0740674994) 3.7 mmol/L 3.5-5 CL (test code = 2017216181) 92 mmol/L 98-108 L CO2 TOTAL (test code = 9651517447) 32 mmol/L 23-31 H AGAP (test code = 4146691949) 2-16 BUN (test code = 6957190599) 53 mg/dL 7-23 H GLUCOSE (test code = 7277443549) 130 mg/dL 70-110 H CREATININE (test code = 6383256697) 1.60 mg/dL 0.6-1.25 H TOTAL BILI (test code = 3562641650) 0.4 mg/dL 0.1-1.1 CALCIUM (test code = 2437620413) 9.4 mg/dL 8.6-10.6 T PROTEIN (test code = 3649070090) 8.1 g/dL 6.3-8.2 ALBUMIN (test code = 0718811816) 4.2 g/dL 3.5-5 ALK PHOS (test code = 9413935409) 112 U/L 34-122 ALTv (test code = 1742-6) 18 U/L 5-50 AST(SGOT) (test code = 5461528847) 26 U/L 13-40 eGFR Calculation (Non-) (test code = 7536029817) mL/min/1.73m2 eGFR Calculation () (test code = 7812895694) mL/min/1.73m2 LYSSA (test code = LYSSA) Association of Glomerular Filtration Rate (GFR) and Staging of Kidney Disease* + --+ --+ ------+| GFR (mL/min/1.73 m2) ?| With Kidney Damage ?| ?Without Kidney Damage+ --------+ --------+ +| ?>90 ?| ?Stage one ?| ? Normal ?+ ---+ ---+ -------+| ?60-89 ?| ?Stage two ?| ? Decreased GFR ? + --+ --+ ------+| ?30-59 ?| ?Stage three ?| ? Stage three ? + --+ --+ ------+| ?15-29 ?| ?Stage four ? | ? Stage four ?+ ---+ ---+ -------+| ?<15 (or dialysis) ? ?| ?Stage five ? | ? Stage five ?+ ---+ ---+ -------+ *Each stage assumes the associated GFR level has been in effect for at least three months. ?Stages 1 to 5, with or without kidney disease, indicate chronic kidney disease. Notes: Determination of stages one and two (with eGFR >59mL/min/1.73 m2) requires estimation of kidney damage for at least three months as defined by structural or functional abnormalities of the kidney, manifested by either:Pathological abnormalities or Markers of kidney damage (including abnormalities in the composition of the blood or urine or abnormalities in imaging tests). Lab Interpretation (test code = 08692-7) [facility] [id number] 19:39:00* Test Item Value Reference Range Interpretation Comme nts URIC ACID (test code = 9063183765) 16.6 mg/dL 3.6-8 H Lab Interpretation (test cod e = 29275-2) [facility] (42360)2019-09-14 19:39:00* Test Item Value Reference Range Interpretation Comme nts NA (test code = 0630589488) 138 mmol/L 135-145 K (test code = 5190438048) 3.7 mmol/L 3.5-5 CL (test code = 0924043919) 92 mmol/L 98-108 L CO2 TOTAL (test code = 9862001464) 32 mmol/L 23-31 H AGAP (test code = 3135094061) 2-16 BUN (test code = 3960024969) 53 mg/dL 7-23 H GLUCOSE (test code = 3241890371) 130 mg/dL 70-110 H CREATININE (test code = 3187017256) 1.60 mg/dL 0.6-1.25 H TOTAL BILI (test code = 6979131767) 0.4 mg/dL 0.1-1.1 CALCIUM (test code = 2992029461) 9.4 mg/dL 8.6-10.6 T PROTEIN (test code = 7165160205) 8.1 g/dL 6.3-8.2 ALBUMIN (test code = 9755837604) 4.2 g/dL 3.5-5 ALK PHOS (test code = 9325429570) 112 U/L 34-122 ALTv (test code = 1742-6) 18 U/L 5-50 AST(SGOT) (test code = 7313609864) 26 U/L 13-40 eGFR Calculation (Non-) (test code = 9714781840) mL/min/1.73m2 eGFR Calculation () (test code = 7516337273) mL/min/1.73m2 LYSSA (test code = LYSSA) Association of Glomerular Filtration Rate (GFR) and Staging of Kidney Disease* + --+ --+ ------+| GFR (mL/min/1.73 m2) ?| With Kidney Damage ?| ?Without Kidney Damage+ --------+ --------+ +| ?>90 ?| ?Stage one ?| ? Normal ?+ ---+ ---+ -------+| ?60-89 ?| ?Stage two ?| ? Decreased GFR ? + --+ --+ ------+| ?30-59 ?| ?Stage three ?| ? Stage three ? + --+ --+ ------+| ?15-29 ?| ?Stage four ? | ? Stage four ?+ ---+ ---+ -------+| ?<15 (or dialysis) ? ?| ?Stage five ? | ? Stage five ?+ ---+ ---+ -------+ *Each stage assumes the associated GFR level has been in effect for at least three months. ?Stages 1 to 5, with or without kidney disease, indicate chronic kidney disease. Notes: Determination of stages one and two (with eGFR >59mL/min/1.73 m2) requires estimation of kidney damage for at least three months as defined by structural or functional abnormalities of the kidney, manifested by either:Pathological abnormalities or Markers of kidney damage (including abnormalities in the composition of the blood or urine or abnormalities in imaging tests). Lab Interpretation (test code = 26376-4) [facility] WITH [id number] 19:14:00* Test Item Value Reference Range Interpretation Comme nts WBC (test code = 6690-2) See_Comment [Automated unrivala ge] The system which generated this result transmitted reference range: 4.20 - 10.70 10*3/?L. The reference range was not used to interpret this result as normal/abnormal. RBC (test code = 789-8) See_Comment [Automated unrivala ge] The system which generated this result transmitted reference range: 4.26 - 5.52 10*6/?L. The reference range was not used to interpret this result as normal/abnormal. HGB (test code = 718-7) 13.2 g/dL 12.2-16.4 HCT (test code = 4544-3) 42.5 % 38.4-49.3 MCV (test code = 787-2) 89.5 fL 81.7-95.6 MCH (test code = 785-6) 27.8 pg 26.1-32.7 MCHC (test code = 786-4) 31.1 g/dL 31.2-35 L RDW-SD (test code = 62711-2) 50.0 fL 38.5-51.6 RDW-CV (test code = 788-0) 15.0 % 12.1-15.4 PLT (test code = 777-3) See_Comment [Automated messa ge] The system which generated this result transmitted reference range: 150 - 328 10*3/?L. The reference range was not used to interpret this result as normal/abnormal. MPV (test code = 25741-0) 10.8 fL 9.8-13 NRBC/100 WBC (test code = 3860555652) See_Comment [Automated [employer] ssage] The system which generated this result transmitted reference range: 0.0 - 10.0 /100 WBCs. The reference range was not used to interpret this result as normal/abnormal. NRBC x10^3 (test code = 9863667575) <0.01 See_Comment [Automated messa ge] The system which generated this result transmitted reference range: 10*3/?L. The reference range was not used to interpret this result as normal/abnormal. GRAN MAT (NEUT) % (test code = 770-8) 56.6 % IMM GRAN % (test code = 0648427392) 0.30 % LYMPH % (test code = 736-9) 30.0 % MONO % (test code = 5905-5) 9.6 % EOS % (test code = 713-8) 2.9 % BASO % (test code = 706-2) 0.6 % GRAN MAT x10^3(ANC) (test code = 3389429732) 3.88 10*3/uL 1.99-6.95 IMM GRAN x10^3 (test code = 2514228290) <0.03 0-0.06 LYMPH x10^3 (test code = 731-0) 2.06 10*3/uL 1.09-3.23 MONO x10^3 (test code = 742-7) 0.66 10*3/uL 0.36-1.02 EOS x10^3 (test code = 711-2) 0.20 10*3/uL 0.06-0.53 BASO x10^3 (test code = 704-7) 0.04 10*3/uL 0.01-0.09 Lab Interpretation (test code = 14232-1) [facility] [id number] 19:14:00* Test Item Value Reference Range Interpretation Comme nts WBC (test code = 6690-2) See_Comment [Automated messa ge] The system which generated this result transmitted reference range: 4.20 - 10.70 10*3/?L. The reference range was not used to interpret this result as normal/abnormal. RBC (test code = 789-8) See_Comment [Automated messa ge] The system which generated this result transmitted reference range: 4.26 - 5.52 10*6/?L. The reference range was not used to interpret this result as normal/abnormal. HGB (test code = 718-7) 13.2 g/dL 12.2-16.4 HCT (test code = 4544-3) 42.5 % 38.4-49.3 MCV (test code = 787-2) 89.5 fL 81.7-95.6 MCH (test code = 785-6) 27.8 pg 26.1-32.7 MCHC (test code = 786-4) 31.1 g/dL 31.2-35 L RDW-SD (test code = 05635-0) 50.0 fL 38.5-51.6 RDW-CV (test code = 788-0) 15.0 % 12.1-15.4 PLT (test code = 777-3) See_Comment [Automated messa ge] The system which generated this result transmitted reference range: 150 - 328 10*3/?L. The reference range was not used to interpret this result as normal/abnormal. MPV (test code = 11880-5) 10.8 fL 9.8-13 NRBC/100 WBC (test code = 9776679130) See_Comment [Automated [employer] ssage] The system which generated this result transmitted reference range: 0.0 - 10.0 /100 WBCs. The reference range was not used to interpret this result as normal/abnormal. NRBC x10^3 (test code = 2864452335) <0.01 See_Comment [Automated unrivala ge] The system which generated this result transmitted reference range: 10*3/?L. The reference range was not used to interpret this result as normal/abnormal. GRAN MAT (NEUT) % (test code = 770-8) 56.6 % IMM GRAN % (test code = 2089061376) 0.30 % LYMPH % (test code = 736-9) 30.0 % MONO % (test code = 5905-5) 9.6 % EOS % (test code = 713-8) 2.9 % BASO % (test code = 706-2) 0.6 % GRAN MAT x10^3(ANC) (test code = 6262708606) 3.88 10*3/uL 1.99-6.95 IMM GRAN x10^3 (test code = 7244317918) <0.03 0-0.06 LYMPH x10^3 (test code = 731-0) 2.06 10*3/uL 1.09-3.23 MONO x10^3 (test code = 742-7) 0.66 10*3/uL 0.36-1.02 EOS x10^3 (test code = 711-2) 0.20 10*3/uL 0.06-0.53 BASO x10^3 (test code = 704-7) 0.04 10*3/uL 0.01-0.09 Lab Interpretation (test code = 96311-2) [facility] [id number] 19:14:00* Test Item Value Reference Range Interpretation Comme nts WBC (test code = 6690-2) See_Comment [Automated unrivala ge] The system which generated this result transmitted reference range: 4.20 - 10.70 10*3/?L. The reference range was not used to interpret this result as normal/abnormal. RBC (test code = 789-8) See_Comment [Automated unrivala ge] The system which generated this result transmitted reference range: 4.26 - 5.52 10*6/?L. The reference range was not used to interpret this result as normal/abnormal. HGB (test code = 718-7) 13.2 g/dL 12.2-16.4 HCT (test code = 4544-3) 42.5 % 38.4-49.3 MCV (test code = 787-2) 89.5 fL 81.7-95.6 MCH (test code = 785-6) 27.8 pg 26.1-32.7 MCHC (test code = 786-4) 31.1 g/dL 31.2-35 L RDW-SD (test code = 49313-3) 50.0 fL 38.5-51.6 RDW-CV (test code = 788-0) 15.0 % 12.1-15.4 PLT (test code = 777-3) See_Comment [Automated unrivala ge] The system which generated this result transmitted reference range: 150 - 328 10*3/?L. The reference range was not used to interpret this result as normal/abnormal. MPV (test code = 18757-6) 10.8 fL 9.8-13 NRBC/100 WBC (test code = 4919111483) See_Comment [Automated [employer] ssage] The system which generated this result transmitted reference range: 0.0 - 10.0 /100 WBCs. The reference range was not used to interpret this result as normal/abnormal. NRBC x10^3 (test code = 6949754834) <0.01 See_Comment [Automated messa ge] The system which generated this result transmitted reference range: 10*3/?L. The reference range was not used to interpret this result as normal/abnormal. GRAN MAT (NEUT) % (test code = 770-8) 56.6 % IMM GRAN % (test code = 0025995353) 0.30 % LYMPH % (test code = 736-9) 30.0 % MONO % (test code = 5905-5) 9.6 % EOS % (test code = 713-8) 2.9 % BASO % (test code = 706-2) 0.6 % GRAN MAT x10^3(ANC) (test code = 2691452150) 3.88 10*3/uL 1.99-6.95 IMM GRAN x10^3 (test code = 7698295418) <0.03 0-0.06 LYMPH x10^3 (test code = 731-0) 2.06 10*3/uL 1.09-3.23 MONO x10^3 (test code = 742-7) 0.66 10*3/uL 0.36-1.02 EOS x10^3 (test code = 711-2) 0.20 10*3/uL 0.06-0.53 BASO x10^3 (test code = 704-7) 0.04 10*3/uL 0.01-0.09 Lab Interpretation (test code = 96792-9) [facility] [id number] 19:14:00* Test Item Value Reference Range Interpretation Comme nts WBC (test code = 6690-2) See_Comment [Automated messa ge] The system which generated this result transmitted reference range: 4.20 - 10.70 10*3/?L. The reference range was not used to interpret this result as normal/abnormal. RBC (test code = 789-8) See_Comment [Automated unrivala ge] The system which generated this result transmitted reference range: 4.26 - 5.52 10*6/?L. The reference range was not used to interpret this result as normal/abnormal. HGB (test code = 718-7) 13.2 g/dL 12.2-16.4 HCT (test code = 4544-3) 42.5 % 38.4-49.3 MCV (test code = 787-2) 89.5 fL 81.7-95.6 MCH (test code = 785-6) 27.8 pg 26.1-32.7 MCHC (test code = 786-4) 31.1 g/dL 31.2-35 L RDW-SD (test code = 16502-4) 50.0 fL 38.5-51.6 RDW-CV (test code = 788-0) 15.0 % 12.1-15.4 PLT (test code = 777-3) See_Comment [Automated unrivala ge] The system which generated this result transmitted reference range: 150 - 328 10*3/?L. The reference range was not used to interpret this result as normal/abnormal. MPV (test code = 70774-1) 10.8 fL 9.8-13 NRBC/100 WBC (test code = 4924216770) See_Comment [Automated [employer] ssage] The system which generated this result transmitted reference range: 0.0 - 10.0 /100 WBCs. The reference range was not used to interpret this result as normal/abnormal. NRBC x10^3 (test code = 0891988763) <0.01 See_Comment [Automated unrivala ge] The system which generated this result transmitted reference range: 10*3/?L. The reference range was not used to interpret this result as normal/abnormal. GRAN MAT (NEUT) % (test code = 770-8) 56.6 % IMM GRAN % (test code = 3175940928) 0.30 % LYMPH % (test code = 736-9) 30.0 % MONO % (test code = 5905-5) 9.6 % EOS % (test code = 713-8) 2.9 % BASO % (test code = 706-2) 0.6 % GRAN MAT x10^3(ANC) (test code = 4700606961) 3.88 10*3/uL 1.99-6.95 IMM GRAN x10^3 (test code = 4767464176) <0.03 0-0.06 LYMPH x10^3 (test code = 731-0) 2.06 10*3/uL 1.09-3.23 MONO x10^3 (test code = 742-7) 0.66 10*3/uL 0.36-1.02 EOS x10^3 (test code = 711-2) 0.20 10*3/uL 0.06-0.53 BASO x10^3 (test code = 704-7) 0.04 10*3/uL 0.01-0.09 Lab Interpretation (test code = 20458-8) [facility] [id number] 19:14:00* Test Item Value Reference Range Interpretation Comme nts WBC (test code = 6690-2) See_Comment [Automated unrivala ge] The system which generated this result transmitted reference range: 4.20 - 10.70 10*3/?L. The reference range was not used to interpret this result as normal/abnormal. RBC (test code = 789-8) See_Comment [Automated unrivala ge] The system which generated this result transmitted reference range: 4.26 - 5.52 10*6/?L. The reference range was not used to interpret this result as normal/abnormal. HGB (test code = 718-7) 13.2 g/dL 12.2-16.4 HCT (test code = 4544-3) 42.5 % 38.4-49.3 MCV (test code = 787-2) 89.5 fL 81.7-95.6 MCH (test code = 785-6) 27.8 pg 26.1-32.7 MCHC (test code = 786-4) 31.1 g/dL 31.2-35 L RDW-SD (test code = 81816-0) 50.0 fL 38.5-51.6 RDW-CV (test code = 788-0) 15.0 % 12.1-15.4 PLT (test code = 777-3) See_Comment [Automated messa ge] The system which generated this result transmitted reference range: 150 - 328 10*3/?L. The reference range was not used to interpret this result as normal/abnormal. MPV (test code = 90042-4) 10.8 fL 9.8-13 NRBC/100 WBC (test code = 9167410558) See_Comment [Automated me ssage] The system which generated this result transmitted reference range: 0.0 - 10.0 /100 WBCs. The reference range was not used to interpret this result as normal/abnormal. NRBC x10^3 (test code = 5293956662) <0.01 See_Comment [Automated messa ge] The system which generated this result transmitted reference range: 10*3/?L. The reference range was not used to interpret this result as normal/abnormal. GRAN MAT (NEUT) % (test code = 770-8) 56.6 % IMM GRAN % (test code = 7076016555) 0.30 % LYMPH % (test code = 736-9) 30.0 % MONO % (test code = 5905-5) 9.6 % EOS % (test code = 713-8) 2.9 % BASO % (test code = 706-2) 0.6 % GRAN MAT x10^3(ANC) (test code = 8269878606) 3.88 10*3/uL 1.99-6.95 IMM GRAN x10^3 (test code = 1760768394) <0.03 0-0.06 LYMPH x10^3 (test code = 731-0) 2.06 10*3/uL 1.09-3.23 MONO x10^3 (test code = 742-7) 0.66 10*3/uL 0.36-1.02 EOS x10^3 (test code = 711-2) 0.20 10*3/uL 0.06-0.53 BASO x10^3 (test code = 704-7) 0.04 10*3/uL 0.01-0.09 Lab Interpretation (test code = 11605-0) [id number] 14:58:00* Test Item Value Reference Range Interpretation Comme nts NT-proBNP (test code = 2821362402) 91 pg/mL See_Comment [Automated message] The system which generated this result transmitted reference range: <=125. The reference range was not used to interpret this result as normal/abnormal. LYSSA (test code = LYSSA) Biotin has been reported to cause a negative bias, interpret results relative to patient's use of biotin. Lab Interpretation (test code = 38126-3) [facility] 14:51:[facility]* Test Item Value Reference Range Interpretation Comme nts MAGNESIUM (test code = 9222065586) 1.9 mg/dL 1.7-2.4 Lab Interpretation (test cod e = 01463-9) [facility]89[facility]2019-04-14 14:50:00* Test Item Value Reference Range Interpretation Comme nts NA (test code = 0599497476) 139 mmol/L 135-145 K (test code = 1791646322) 4.5 mmol/L 3.5-5 CL (test code = 2632077830) 100 mmol/L 98-108 CO2 TOTAL (test code = 5824976322) 27 mmol/L 23-31 AGAP (test code = 3057398739) 2-16 BUN (test code = 1109803753) 38 mg/dL 7-23 H GLUCOSE (test code = 1064093001) 116 mg/dL 70-110 H CREATININE (test code = 8787744227) 1.95 mg/dL 0.6-1.25 H TOTAL BILI (test code = 5072897844) 0.2 mg/dL 0.1-1.1 CALCIUM (test code = 1311553447) 9.1 mg/dL 8.6-10.6 T PROTEIN (test code = 2773782491) 8.2 g/dL 6.3-8.2 ALBUMIN (test code = 3066148689) 4.2 g/dL 3.5-5 ALK PHOS (test code = 3881455962) 127 U/L 34-122 H ALT(SGPT) (test code = 0234029447) 28 U/L 9-51 AST(SGOT) (test code = 7917410436) 28 U/L 13-40 eGFR Calculation (Non-) (test code = 1146499441) mL/min/1.73m2 eGFR Calculation () (test code = 4621338255) mL/min/1.73m2 LYSSA (test code = LYSSA) Association of Glomerular Filtration Rate (GFR) and Staging of Kidney Disease*+ + + +| GFR (mL/min/1.73 m2)?| With Kidney Damage?|?Without Kidney Damage+ --------+ --------+ +|?>90?|?S tage one?|? Normal?+ ---------+ ---------+ +|?60-89? |?Stage two?|? Decreased GFR? + --+ --+ ------+|?30-59?|?Stage three?|? Stage three? + --+ --+ ------+|?15-29?|?Stage four? |? Stage four?+ -------+ -------+ +|?<15 (or dialysis)?|?Stage five? |? Stage five?+ -------+ -------+ +*Each stage assumes the associated GFR level has been in effect for at least three months.?Stages 1 to 5, with or without kidney disease, indicate chronic kidney disease.Notes: Determination of stages one and two (with eGFR >59mL/min/1.73 m2) requires estimation of kidney damage for at least three months as defined by structural or functional abnormalities of the kidney, manifested by either:Pathological abnormalities or Markers of kidney damage (including abnormalities in the composition of the blood or urine or abnormalities in imaging tests). Lab Interpretation (test code = 28894-4) Abnormal [facility] Notes Date/Time Note Provider Source 2024-07-21 08:45:00 Members Preferred Language [place]ij[place] Patient Currently Located in their home state of [place], YES ### HISTORY OF PRESENT ILLNESS Confirmed the following past medical history:Chronic Kidney DiseaseDiabetesCoronary Artery DiseaseHyperlipidemiaObstructive Sleep Apnea CHF COMMUNITY PROVIDER DETAILS Which primarily manages your CHF?: ENGINEERING ANALYST Resin Painter name: Dr.Mohammed Buchanan Fax [phone] Phone [phone] Resin Painter office phone number: Fax [phone] Phone [phone] Next Specialist/PCP appointment: 2024-07-20 Additional Provider Name 1: PCP - Hang Calix Additional Provider 1 office phone number: Additional Provider 1 next appointment: 2024-06-27 PAST MEDICAL HISTORY (completed during inital 30 days) CHF Classification: HFrEF ICD: Yes CARDIAC DEVICE Details: Received first IACD Jun 2013 and a new device in 10/2021. Duration of Diagnosis at time of Enrollment: 1 YEAR OR GREATER Cardiac Diagnostic Testing Results: 11/18/20 Interpretation Summary The study was technically adequate. A complete two-dimensional transthoracic echocardiogram was performed (2D, M-mode, Doppler and color flow Doppler). There is moderate concentric left ventricular hypertrophy. Diastolic function is pseudonormal. Left ventricular filling presure is elevated. The left atrium is mildly dilated. Right ventricular systolic pressure is elevated at >60mmHg. Ejection Fraction = 35-40%. Lase echo date: 2021-08-15 Cardiac Diagnostic Testing Results: 35-39% LV systolic function moderately impaired with mild MR. 07/26/19 Interpretation Summary A two-dimensional transthoracic echocardiogram with M-mode and Doppler was performed. The study was technically adequate. There is no comparison study available. Ejection Fraction = 60-65%. There is moderate concentric left ventricular hypertrophy. Diastolic function is pseudonormal. The left ventricular wall motion is normal. Estimated RA pressure is 0-5 mmHg. Insufficient Tricuspid regurgitation jet to estimate RVSP. Extremity Swelling: Yes Orthopnea: Yes Arrhythmia: Yes Chronic Kidney Disease: Yes COPD: Yes Coronary Artery Disease: Yes Diabetes: Yes Hyperlipidemia: Yes Obstructive Sleep Apnea: Yes Arrythmia Details: afib Optional, Additional Past Medical History: CKD3 dysphagia MAKAYLA - uses CPAP occasionally MEDICATION Notable Medication Details: 07/21/24 Member states heat regulator advised him to d/c losartan and take carvedilol 25mg 1/2 tab BID. Member's Understanding of Medications: Fair GDMT Review Completed: No Please select the reason for not completing the GDMT review: Insufficient medical records on file VITALS Feet: 5 Inches: 6 Current Weight: 270 lbs Current Patient BMI: 43.57 Digital Scale: Yes Automatic BP Cuff: Yes Section Completed: Yes EDUCATION Reviewed Care [employer] Services: Yes Orientation provided to [employer] LTE scale: Yes Reviewed diet/nutrition best practices: Yes Reviewed edema management techniques : Yes Education notes: Reviewed with member How to use the scale - completed today Obtaining an accurate and consistent daily weight - completed today Pending Review Orientation/review of Heart Failure Action Plan, Zones, and Contingency Plan Reviewed medication regimen, purpose, effects, side effects, adherence techniques, and safety concerns Contingency plan CHF s/sx and symptom tracker Diet/Nutrition education including low sodium diet and fluid restriction when appropriate - completed 07/05/24 and 07/21/24 Exercising with a chronic condition Living with chronic conditions Steps for healthier heart Section Completed: Yes CHF ASSESSMENT & PLAN No Change From Baseline Noted: Yes Signs or symptoms of an acute exacerbation of CHF?: No Establish self-care monitoring routine with membe. STATUS- IN PROGRESS Increase members knowledge of CHF symptoms/zones. STATUS- IN PROGRESS Increase members knowledge of lifestyle accommodations r/t CHF. STATUS- IN PROGRESS PLAN: 07/21/24 Member is engaged during call with this RN. Member states he is still in bed. Card appt. - Member states was not able to make it to appt. Set Staff Fitter - advised member he doesn't have to see card. MEGHAN was a few days ago. Member states was advised to stop losartan due to kidney function . Carvedilol was cut in half BID. F/U 08/16/24 Member has not taken morning meds yet. BP during call 162/71 rechecked after several minutes. 152/88 yesterday 158/83. This RN encouraged member to check BP 1.5 hour after taking meds and if consistenlty >140/90. Member states has cut back on fluid on water intake to 3-4 bottles of water vs the previous 7-8 bottles. Member states he is able to move more without being short of breath! This RN encouraged member to try to drink 3 bottles of water in addition to his cup of coffee and juice. Member states he will try. Member states he received insurance forms but doesn't understand them. This RN provided member with contact information for promotions assistant sales marketing Junesanna Mccord and encourage him to contact her fabien. Follow-up verify if member continues to feel well and is drinking less fluid. Verify member scheduled f/u with card. 07/05/24 Member agrees to re-enrollment in HF Program. This RN informed member we can focus our calls on what he thinks he needs more information on. Member states his most recent ASE related to HF was because he ran out of Metolazone and he drinks too much water. Member recalls 3 bottles of water is recommended for the day. Member states he drinks 7-8 bottles of water per day in addition to other drinks such as coffee / juice. Member counseled on fluid intake restriction to prevent the body from storing too much water. Member directed to do this only if their healthcare provider has told them to do so, otherwise dehydration may occur. Informed member that fluid includes anything that is liquid at room temperature including soup and ice cream. Provided the following tips for tracking and limiting fluid intake at home: - Drink from a small glass and only when thirsty and having ice chips instead of water. - Rinse your mouth with water, but don t swallow it. - Chew sugarless gum or suck on hard candy to keep your mouth moistaside of water will.s. neuropathy in feet Member reports SOB, wheezing with relief after breathing treatments. Member states this started since he quit smoking 02/24/24. Member reports he endorses loosening up of phlegm and uses cough med OTC with help. Uses Wixela, neb treatment and Albuterol as needed with relief. . Member states he just got all his teeth extracted and has appts in often for dentist, heat regulator, bariatric coordinator, PCP, and electrician refinery. Member states his time is limited because of this and agrees to call with this RN every 2 weeks. BP today 139/72 p. 76 . Member keeps log several times per week 07/20/24 - card appt Member previously completed HF program with Chelo Cabezas RN and completed GDMT consult with Alf Jordan RPH. Follow-up review vitals. BT scale turned on and encouraged member to change batteries review symptoms (cause and treatment of them) Section Completed: Yes Elias Han [facility] 2024-07-05 11:30:00 Members Preferred Language [place]ij[place] Patient Currently Located in their home state of [place], YES ### HISTORY OF PRESENT ILLNESS Confirmed the following past medical history:Chronic Kidney DiseaseDiabetesCoronary Artery DiseaseHyperlipidemiaObstructive Sleep Apnea CHF COMMUNITY PROVIDER DETAILS Which primarily manages your CHF?: ENGINEERING ANALYST Resin Painter name: Dr.Mohammed Buchanan Fax [phone] Phone [phone] Resin Painter office phone number: Fax [phone] Phone [phone] Next Specialist/PCP appointment: 2024-07-20 Additional Provider Name 1: PCP - Hang Calix Additional Provider 1 office phone number: Additional Provider 1 next appointment: 2024-06-27 PAST MEDICAL HISTORY (completed during inital 30 days) CHF Classification: HFrEF ICD: Yes CARDIAC DEVICE Details: Received first IACD Jun 2013 and a new device in 10/2021. Duration of Diagnosis at time of Enrollment: 1 YEAR OR GREATER Cardiac Diagnostic Testing Results: 11/18/20 Interpretation Summary The study was technically adequate. A complete two-dimensional transthoracic echocardiogram was performed (2D, M-mode, Doppler and color flow Doppler). There is moderate concentric left ventricular hypertrophy. Diastolic function is pseudonormal. Left ventricular filling presure is elevated. The left atrium is mildly dilated. Right ventricular systolic pressure is elevated at >60mmHg. Ejection Fraction = 35-40%. Lase echo date: 2021-08-15 Cardiac Diagnostic Testing Results: 35-39% LV systolic function moderately impaired with mild MR. 07/26/19 Interpretation Summary A two-dimensional transthoracic echocardiogram with M-mode and Doppler was performed. The study was technically adequate. There is no comparison study available. Ejection Fraction = 60-65%. There is moderate concentric left ventricular hypertrophy. Diastolic function is pseudonormal. The left ventricular wall motion is normal. Estimated RA pressure is 0-5 mmHg. Insufficient Tricuspid regurgitation jet to estimate RVSP. Extremity Swelling: Yes Orthopnea: Yes Arrhythmia: Yes Chronic Kidney Disease: Yes COPD: Yes Coronary Artery Disease: Yes Diabetes: Yes Hyperlipidemia: Yes Obstructive Sleep Apnea: Yes Arrythmia Details: afib Optional, Additional Past Medical History: CKD3 dysphagia MAKAYLA - uses CPAP occasionally MEDICATION Member's Understanding of Medications: Fair GDMT Review Completed: No Please select the reason for not completing the GDMT review: Insufficient medical records on file VITALS Feet: 5 Inches: 6 Digital Scale: Yes Automatic BP Cuff: Yes Section Completed: Yes EDUCATION Reviewed Care [employer] Services: Yes Orientation provided to Body[employer] LTE scale: Yes Education notes: Reviewed with member How to use the scale - completed today Obtaining an accurate and consistent daily weight - completed today Pending Review Orientation/review of Heart Failure Action Plan, Zones, and Contingency Plan Reviewed medication regimen, purpose, effects, side effects, adherence techniques, and safety concerns Contingency plan CHF s/sx and symptom tracker Diet/Nutrition education including low sodium diet and fluid restriction when appropriate Exercising with a chronic condition Living with chronic conditions Steps for healthier heart Section Completed: Yes SOCIAL HISTORY Food insecurity?: No Housing insecurity?: No CHF ASSESSMENT & PLAN No Change From Baseline Noted: Yes Signs or symptoms of an acute exacerbation of CHF?: No Enrollment Status for CHF Specialty Clinic: Eligible-ENROLLED CHF SPECIALTY CLINIC ENROLLMENT DETAILS: MEMBER IS ELIGIBLE AND AGREEABLE TO ENROLLMENT IN THE [facility] FAILURE SPECIALTY CLINIC. Clinic visit kimberly, care team members, and goals reviewed with the member today. Welcome packet and BodyTrace scale will be sent to the member's home this week. Member informed that scale is included in their benefits at no additional cost. Use of the scale is voluntary and will be used for remote weight monitoring during program enrollment only. NEXT RN FOLLOW SCHEDULED FOR: date/time Establish self-care monitoring routine with membe. STATUS- IN PROGRESS Increase members knowledge of CHF symptoms/zones. STATUS- IN PROGRESS Increase members knowledge of lifestyle accommodations r/t CHF. STATUS- IN PROGRESS PLAN: 07/05/24 Member agrees to re-enrollment in HF Program. This RN informed member we can focus our calls on what he thinks he needs more information on. Member states his most recent ASE related to HF was because he ran out of Metolazone and he drinks too much water. Member recalls 3 bottles of water is recommended for the day. Member states he drinks 7-8 bottles of water per day in addition to other drinks such as coffee / juice. Member counseled on fluid intake restriction to prevent the body from storing too much water. Member directed to do this only if their healthcare provider has told them to do so, otherwise dehydration may occur. Informed member that fluid includes anything that is liquid at room temperature including soup and ice cream. Provided the following tips for tracking and limiting fluid intake at home: - Drink from a small glass and only when thirsty and having ice chips instead of water. - Rinse your mouth with water, but don t swallow it. - Chew sugarless gum or suck on hard candy to keep your mouth moistaside of water will.s. neuropathy in feet Member reports SOB, wheezing with relief after breathing treatments. Member states this started since he quit smoking 02/24/24. Member reports he endorses loosening up of phlegm and uses cough med OTC with help. Uses Wixela, neb treatment and Albuterol as needed with relief. . Member states he just got all his teeth extracted and has appts in often for dentist, heat regulator, bariatric coordinator, PCP, and electrician refinery. Member states his time is limited because of this and agrees to call with this RN every 2 weeks. BP today 139/72 p. 76 . Member keeps log several times per week 07/20/24 - card appt Member previously completed HF program with Chelo Cabezas RN and completed GDMT consult with Alf Jordan RPH. Follow-up review vitals. BT scale turned on and encouraged member to change batteries review symptoms (cause and treatment of them) Section Completed: Yes CARE COORDINATION, REFERRALS, AND SCHEDULING External Care Coordination : Yes Mail: Yes Elias Han [facility] 2024-06-13 09:30:00 ASSESSMENT SUMMARY MARIAN CAMPOS SR is a 64 year old man seen today by [facility] for a [facility] Visit. PATIENT'S NEXT STEPS: Continue to monitor leg pain and Gabapentin increase Members Preferred Language Azerbaijani Patient Currently Located in their home state of [place], YES DIAGNOSIS [id number] - Morbid (severe) obesity due to excess [id number] - Body mass index [BMI] 45.0-49.9, adult VISIT PURPOSE, PATIENT'S GOALS, & AGENDA SETTING Annual Wellness Visit with PCP completed this year?: AWV already completed MEDICATION RECONCILIATION Did you review the patient's prescription and non-prescription drugs, vitamins, herbal remedies, and other supplements, AND is the accompanying medication list documented in the medical record?: Yes GENERAL ASSESSMENT Feet: 5 Inches: 6 Pounds: 280 Patient BMI: 45.19 Dx: E66.01 - Morbid (severe) obesity due to excess calories Notes for E66.01: Your BMI is above 40: Your BMI is considered morbidly obese. People with morbid obesity are at a significantly increased risk for many diseases and health conditions, including cardiovascular disease, high blood pressure, diabetes, breathing problems and more. Consider making lifestyle changes through healthy eating and increased activity to improve your overall health and quality of life. Recommend to refer patient to diet and weight loss program. Follow with PCP.DISCUSSED: Dietary counseling was provided Morbid obesity confirmed on physical exam: Yes Dx: Z68.42 - Body mass index [BMI] 45.0-49.9, adult Notes for Z68.42: Your BMI is above 40: Your BMI is considered morbidly obese. People with morbid obesity are at a significantly increased risk for many diseases and health conditions, including cardiovascular disease, high blood pressure, diabetes, breathing problems and more. Consider making lifestyle changes through healthy eating and increased activity to improve your overall health and quality of life. Recommend to refer patient to diet and weight loss program. Follow with PCP.DISCUSSED: Dietary counseling was provided Supplemental oxygen status: Room Air Supplemental Oxygen Needs: Does not need supplemental oxygen CARDIOVASCULAR - Arrhythmia Current evidence of one of the following arrhythmias?: None of These Does patient get palpitations?: No CARDIOVASCULAR - Atherosclerosis & Arterial Disease Tortuous aorta documented on imaging studies?: No [Intermittent Vascular Claudication] Does the patient experience muscle pain in the calves while walking that is relieved by standing?: No CARDIOVASCULAR - Venous Embolism & Thrombosis Previous diagnosis of venous embolism/thrombus that is CURRENTLY treated with an anticoagulant? No ANTICOAGULATION Does patient CURRENTLY take anticoagulant medication?: No ⭐ENDOCRINE - Diabetes (A1c + Eye + Kidney) Most recent Hg A1C Result Range: Less than or equal to 8.9% Select the patient's preferred (and available) testing method: In Home Test Kit HEMATOLOGY - Thrombocytopenia/Senile Purpura Purpura on physical exam?: No Is the patient's most recent platelet value within the past 12 months less than 150k?: No VISIT WRAP-UP Member medical history, medications, and most recent labs reviewed in [facility]. Discussed medication use and side effects with members prior to prescribing. Drug interactions reviewed: Yes APPOINTMENT CPT CODE* Please indicate how this visit was conducted: Telephone Visit Time: 11-20 minutes Vaccinations (FLU) Confirm: MEMBER HAS INDICATED THEY DO NOT HAVE PLAN, NOR SUPPORT PLANNING FOR FLU VACCINATION: DECLINES FLU VACCINE Charmaine Dnun [facility] 2024-04-10 11:15:00 Members Preferred Language Azerbaijani Patient Currently Located in their home state of [place], YES ### HISTORY OF PRESENT ILLNESS Patient confirmed the following past medical history:DiabetesChronic Kidney DiseaseCoronary Artery DiseaseHyperlipidemia PAST MEDICAL HISTORY (completed during inital 30 days) CHF Classification: HFrEF ICD: Yes CARDIAC DEVICE Details: Received first IACD Jun 2013 and a new device in 10/2021. Duration of Diagnosis at time of Enrollment: 1 YEAR OR GREATER Cardiac Diagnostic Testing Results: member states last Echo in and was told heart functioning at 35% Lase echo date: 2021-08-15 Cardiac Diagnostic Testing Results: 35-39% LV systolic function moderately impaired with mild MR. Extremity Swelling: Yes Orthopnea: Yes Acute Event Details: ED visit about 2 weeks ago due to fluid retention. Member reports he ran out of metalozone 5mg for about 2 weeks and was unable to contact providers for refill. Chronic Kidney Disease: Yes COPD: Yes Coronary Artery Disease: Yes Diabetes: Yes Hyperlipidemia: Yes Optional, Additional Past Medical History: dysphagia MAKAYLA - uses CPAP occasionally MEDICATION Member's Understanding of Medications: Fair VITALS Feet: 5 Inches: 7 CHF ASSESSMENT & PLAN No Change From Baseline Noted: Yes Signs or symptoms of an acute exacerbation of CHF?: No Recent Acute Event Details : Member reports ED visit about 2 weeks ago due to fluid retention. Member reports he ran out of metalozone 5mg for about 2 weeks and was unable to contact providers for refill. Enrollment Status for [facility]: Eligible-NOT INTERESTED PLAN: Member reports he was endorsing fluid retention about 1-2 weeks ago. Member reports he couldn't get in touch with provider for refill of metaloze 5mg daily and was out of meds for 2 weeks. Member states he went to ED and was given refill. Card 0 has appt soon and knows date. ? Apr. and has appt every 6 months - CAMI MEGHAN 10/2022 for difib replacement . checks AICD. Member reports baseline BLE edema left leg edema usually worse than the right leg . Member reports he sleeps on a recliner over a year due to orthopnea. Member states card is aware. Member states CPAP helps a bit and uses it once in a while. Feels like machine gets hot. Member reports he has had machine for over 2 years. Member is not sure who prescribed CPAP. Looks like it was ordered by . Has appt coming up and this RN advised to discuss then. Dx of dysphagia- had surgery on throat Quit smoking February 24, 2024 and had been smoking since he was 10 years old. Used patches for about a week. Member does not check weight but does check BP daily and this morning it was 125/71 p. 71 This RN reviewed with member importance of daily weight check for monitoring of fluid retention. Member states he knows what to do but doesn't follow recommendations of low sodium diet and weight montiroring. Member previously completed HF program with Chelo Cabezas RN and completed GDMT consult with Alf Jordan RPH. Member is not interested in HF program or Palliative care program to discuss goals of care. Member is in agreement to receive [facility] HF booklet. This RN reviewed benefits of COD program with member and sent SMS with their contact information. Section Completed: Yes SOCIAL HISTORY Food insecurity?: No Housing insecurity?: No ⭐ENDOCRINE/DIABETES (A1c + Eye Exam+ Kidney Desease Screening*) Have you had an eye exam including a retinopathy exam in the last 2 years?: No CARE COORDINATION, REFERRALS, AND SCHEDULING Mail: Yes Elias Han [facility] 2021-10-28 16:10:00 [id number] [place] [address] PATIENT NAME: MARIAN CAMPOS ADMIT DATE: 10/28/21 ACCOUNT NO: [id number] ROOM NO: AGE: 61 REPORT TYPE: CARDIAC CATHETERIZATION REPORT SEX: M ADMITTING PHYSICIAN: ATTENDING PHYSICIAN:Portillo Mensah MD PROCEDURE DATE: 10/28/2021 PROCEDURE: Non-thoracotomy single lead AICD generator change. PREOPERATIVE DIAGNOSES: 1. History of chronic systolic heart failure. 2. Medtronic automatic implantable cardioverter-defibrillator at elective replacement. POSTPROCEDURE DIAGNOSES: 1. History of chronic systolic heart failure. 2. Medtronic automatic implantable cardioverter-defibrillator elective replacement. SURGEON: Portillo Mensah MD ANESTHESIA: Local anesthesia with % lidocaine and moderate sedation. INTERNET PROJECT MANAGER: None. PROCEDURE DETAILS: After informed consent was obtained explaining to the patient risks, benefits, and alternatives, the patient was brought to the cardiac catheterization lab in the fasting postabsorptive state. He was prepped and draped in sterile fashion. Local anesthesia was applied over the existing pocket with 1% lidocaine. Access to the pocket was obtained with sharp and blunt dissection as well as electrocautery. The generator was removed from the pocket. The suture was removed from the pocket. The pocket was flushed with antibiotic-containing solution. Hemostasis was achieved with electrocautery. The pocket was again flushed with antibiotic-containing solution. The generator was disconnected from the lead. The new generator was connected to the lead. The generator was then placed in a Tyrx sleeve. Jayden was applied to the pocket. The generator and sleeve were placed in the pocket and secured in the pocket with 0 Ethibond suture. The pocket was closed in 3 layers using 2-0 Vicryl for the subcutaneous layers and 4-0 Vicryl for the skin. Steri-Strips were applied to wound externally. The patient tolerated the procedure well with no complications. IMPLANT DATA: 1. Pulse generator Medtronic model [id number], serial number [id number]. 2. Right ventricular lead Medtronic model [id number], length 62 cm, serial number [id number], implant date 07/05/2013. 3. Explanted generator Medtronic model S667FTD, serial# [id number]. PATIENT NAME: MARIAN CAMPOS STIMULATION THRESHOLD DATA: Right ventricle 9.2 millivolt R waves, impedance 522 ohms, HVB impedance 59 ohms, HVX impedance 61 ohms, threshold 1.5 volts at 1 millisecond. CONCLUSIONS: Successful non-thoracotomy single lead AICD generator change. ESTIMATED BLOOD LOSS: 5 mL COMPLICATIONS: No complications. Dictated By: Portillo Mensah MD WT: CATH:MIRA/PEPGR/NTS Conf#: [id number]/DID#: [id number] Authenticated by Portillo Mensah MD On 10/31/2021 01:47:54 PM at 0147 PATIENT NAME: MARIAN CAMPOS [facility] 2021-10-28 11:41:00 [id number] [place] [address] PATIENT NAME: MARIAN CAMPOS ADMIT DATE: 10/28/21 ACCOUNT NO: [id number] ROOM NO: AGE: 61 REPORT TYPE: ELECTROCARDIOGRAM SEX: M ADMITTING PHYSICIAN: ATTENDING PHYSICIAN:Portillo Mensah MD Order: [id number] Test Reason : PRE CATHLAB PROCEDURE Test Date/Time Stamp: WedOct 28 2021 11:41:14 Blood Pressure : / mmHG Vent. Rate : 073 BPM Atrial Rate : 073 BPM P-R Int : 176 ms QRS Dur : 098 ms QT Int : 450 ms P-R-T Axes : 047 063 -01 degrees QTc Int : 495 ms Demand pacemaker, interpretation is based on intrinsic rhythm Undetermined rhythm Low voltage QRS Abnormal QRS-T angle, consider primary T wave abnormality Prolonged QT Abnormal ECG When compared with ECG of 05-JUL-2013 23:24, Significant changes have occurred Confirmed by CHARAN WERNER ([id number]) on 10/28/2021 3:33:59 PM Referred By: Awais Mckeon Confirmed by:CHARAN WERNER at 1533 PATIENT NAME: MARIAN CAMPOS GENE HCAWU
[2025-01-08] MEDS ORDERED: CYCLOBENZAPRINE 10 MG TAB ONE (21:28)
[2025-01-08] MEDS ORDERED: KETOROLAC 30 MG/ML INJ ONE (21:28)
[2025-01-08] MEDS ORDERED: HYDROCODONE/APAP 5/325 MG TAB ONE (21:29)
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
[2025-01-08] MEDS ORDERED: HYDROCODONE/APAP 10/325 TAB ONE (23:15)
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
--- NOTE | 2025-01-08 23:20 | ER ---
Nurse's Notes [facility] Name: Brooks Owusu Age: 64 yrs Sex: Male : 1960 Arrival Date: 01/08/2025 Time: 19:46 Bed 12 Private MD: Diagnosis: Spondylolysis, lumbar region;L3-L4 disc herniation with central canal stenosis, L4-L5 disc herniation with central canal stenosis, acute right lower lumbar pain, degenerative lumbar spinal arthritis Presentation: 01/08 20:24 Chief complaint: Patient states: RT LOWER BACK PAIN X1 MONTH WORSENING. PT REPORTS JUST dd2 FINISHED A 10 DAY COURSE OF ANTIBX FOR UTI. REPORTS PAIN WITH MOVEMENT AND POSITIONS. Coronavirus screen: At this time, the client does not indicate any symptoms associated with coronavirus-19. Ebola Screen: No symptoms or risks identified at this time. Initial Sepsis Screen: Does the patient meet any 2 criteria? No. Patient's initial sepsis screen is negative. Does the patient have a suspected source of infection? No. Patient's initial sepsis screen is negative. Risk Assessment: Do you want to hurt yourself or someone else? Patient reports no desire to harm self or others. Onset of symptoms is unknown. 20:24 Method Of Arrival: Ambulatory dd2 20:24 Acuity: GILMAR 3 dd2 Triage Assessment: 20:27 General: Appears in no apparent distress. uncomfortable, Behavior is calm, cooperative, dd2 appropriate for age. Pain: Complains of pain in right low back Pain does not radiate. Pain currently is 9 out of 10 on a pain scale. Musculoskeletal: Circulation, motion, and sensation intact. Range of motion: intact in all extremities, Tenderness present in right low back Reports pain in right low back. Historical: - Allergies: 20:27 Bactrim; dd2 - PMHx: 20:27 COPD; diabetes mellitus; Hypercholesterolemia; Hypertensive disorder; Congestive heart dd2 failure; - PSHx: 20:27 defibrillator; dd2 - Immunization history:: Adult Immunizations not up to date, Pneumococcal vaccine is up to date. - Infectious Disease History:: Denies. - Social history:: Smoking status: Patient/guardian denies using tobacco, but has a distant history of tobacco abuse. - Family history:: not pertinent. Screenin:[facility] ED Fall Risk Assessment (Adult) History of falling in the last 3 months, jb4 including since admission No falls in past 3 months (0 pts) Confusion or Disorientation No (0 pts) Intoxicated or Sedated No (0 pts) Impaired Gait No (0 pts) Mobility Assist Device Used No (0 pt) Altered Elimination No (0 pt) Score/Fall Risk Level 0 - 2 = Low Risk Oriented to surroundings, Maintained a safe environment. Abuse screen: Denies threats or abuse. Nutritional screening: No deficits noted. Tuberculosis screening: No symptoms or risk factors identified. Assessment: 21:46 Reassessment: Patient appears in no apparent distress at this time. Patient and/or jb4 family updated on plan of care and expected duration. Pain level reassessed. Patient is alert, oriented x 3, equal unlabored respirations, skin warm/dry/pink. Vital Signs: 20:24 BP 109 / 74; Pulse 83; Resp 16; Temp 98.3(O); Pulse Ox 97% on R/A; Weight 125.19 kg; dd2 Height 5 ft. 6 in. ; Pain 9/10; 23:18 BP 122 / 82; Pulse 77; Resp 16; Pulse Ox 99% on R/A; dd2 20:24 Body Mass Index 44.55 (125.19 kg, 167.64 cm) dd2 20:24 Pain Scale: Adult dd2 [place] Coma Score: 01/09 20:08 Eye Response: spontaneous(4). Motor Response: obeys commands(6). Verbal Response: sp4 oriented(5). Total: 15. ED Course: 01/08 19:49 Patient arrived in ED. im 20:22 Ambrose Stafford MD is Attending Physician. sp4 20:26 Triage completed. dd2 20:27 Arm band placed on left wrist. dd2 21:46 Patient has correct armband on for positive identification. Bed in low position. Call jb4 light in reach. Side rails up X 1. Provided Education on: plan of care. 21:46 No provider procedures requiring assistance completed. Patient did not have IV access jb4 during this emergency room visit. 22:22 CT Lumbar Spine Wo Con In Process Unspecified. EDMS 22:22 CT Pelvis wo Cont In Process Unspecified. EDMS 23:22 Mingo Troncoso MD is Referral Physician. sp4 Administered Medications: 21:36 Drug: Ketorolac IM 60 mg IM once Route: IM; Site: right gluteus; jb4 23:53 Follow up: Response: No adverse reaction; Marked relief of symptoms vc1 21:36 Drug: HYDROcodone-acetaminophen PO 5 mg-325 mg 2 tabs PO once Route: PO; jb4 23:53 Follow up: Response: No adverse reaction; Marked relief of symptoms vc1 21:36 Drug: Cyclobenzaprine PO 10 mg PO once Route: PO; jb4 23:52 Follow up: Response: No adverse reaction; Marked relief of symptoms vc1 23:17 Drug: [place] PO 10 mg-325 mg 1 tabs PO once Route: PO; dd2 23:52 Follow up: Response: No adverse reaction vc1 Medication: 21:46 VIS not applicable for this client. jb4 Point of Care Testing: Blood Glucose: 21:43 Blood Glucose: 180 mg/dL; vc1 Ranges: Outcome: 23:20 Discharge ordered by . sp4 23:52 Discharged to home via wheelchair, with significant other, vc1 23:52 Condition: stable 23:52 Discharge instructions given to patient, significant other, Instructed on discharge instructions, follow up and referral plans. medication usage, Demonstrated understanding of instructions, follow-up care, medications, Prescriptions given X 3, 23:52 Patient left the ED. vc1 Signatures: Dispatcher [employer] EDMingo Morales RN RN jb4 Valentina Lewis RN RN vc1 Ambrose Stafford MD MD sp4 Natali Garner DIANA, RN RN dd2
[2025-01-09 00:23] VITALS: TEMP 98.3
[2025-01-09 00:25] VITALS: BP 122/82; O2SAT 99
== END 2025-01-08 23:52 | disposition home or self-care (01) ==
LOC: ER 19:46
DX: M43.06 Spondylolysis, lumbar region (principal); M51.26 Other intervertebral disc displacement, lumbar region
CPT/HCPCS: 72131; 72192; 82947; 96372; 99284